=== PATIENT | female | born 1970 | race Caucasian/White ===

== ENCOUNTER 2018-03-12 00:39 | Inpatient (IN) | payer OTHER ==
[2018-03-12] MEDS ORDERED: SODIUM CHLORIDE 0.9% 1,000 ML IV STA (00:44)
--- NOTE | 2018-03-12 00:59 | ED ---
General Adult HPI - General Stated complaint: mental health Time Seen by Provider: 03/12/18 00:44 Source: patient, police, EMS, RN notes reviewed, old records reviewed - History of Present Illness Initial comments: 47-year-old female presents with suicide attempt. Patient states that beginning at approximately 9 PM she took between 50 and 60 extra strength Tylenol, 500 mg. And between 50 and 60 prescription strength Motrin. This was a suicide attempt. She has had nausea and several episodes of vomiting since ingestion. She is presenting with police at approximately 1 AM. She is uncertain of the exact time course but believes the pills were ingested between 9 and 10 PM. She also admits taking her regular blood pressure medication and Xanax. Denies any alcohol consumption. - Related Data Home Medications Medication Instructions Recorded Confirmed ALPRAZolam [Xanax] 2 mg PO TID PRN 04/23/15 06/30/15 HYDROcodone/APAP 10-325MG [[place] 1 tab PO DIRECTED PRN 04/23/15 06/30/15 10-325] Ibuprofen [Motrin] 800 mg PO DIRECTED PRN 04/23/15 06/30/15 Ranitidine HCl [Zantac] 150 mg PO BID 04/23/15 06/30/15 amLODIPine BES/OLMESARTAN MED 1 tab PO DAILY 04/23/15 06/30/15 [Dodie 5-40 mg Tablet] Albuterol Inhaler [Ventolin Hfa 1 - 2 puff INHALATION Q6HR PRN 05/20/15 06/30/15 Inhaler] Albuterol Nebulized [Ventolin 2.5 mg INHALATION DAILY PRN 05/20/15 06/30/15 Nebulized] Previous Rx's Medication Instructions Recorded Docusate [Colace] 100 mg PO BID #30 capsule 06/30/15 Allergies Allergy/AdvReac Type Severity Reaction Status Date / Time amoxicillin Allergy Rash/Hives Verified 05/18/15 13:55 cefaclor [From Ceclor] Allergy Rash/Hives Verified 05/18/15 13:55 clarithromycin [From Biaxin] Allergy Rash/Hives Verified 05/18/15 13:55 meperidine HCl [From Demerol] Allergy Rash/Hives/ Verified 05/18/15 13:55 vomiting sulfamethoxazole Allergy Rash/Hives Verified 05/18/15 13:55 [From Septra] trimethoprim [From ] Allergy Rash/Hives Verified 05/18/15 13:55 Review of Systems ROS Statement: Those systems with pertinent positive or pertinent negative responses have been documented in the HPI. ROS Other: All systems not noted in ROS Statement are negative. Past Medical History Past Medical History: GERD/Reflux, Osteoarthritis (OA) Additional Past Medical History / Comment(s): SCOLIOSIS, DDD, HX OF H PYLORI, VENEGAS'S ESOPHAGUS, HIATAL HERNIA History of Any Multi-Drug Resistant Organisms: None Reported Past Surgical History: Breast Surgery, Hysterectomy, Tubal Ligation Additional Past Surgical History / Comment(s): RT BREAST BX, STILL HAS MARKER Past Anesthesia/Blood Transfusion Reactions: Previous Problems w/ Anesthesia Additional Past Anesthesia/Blood Transfusion Reaction / Comment(s): " TAKES LONGER TO WAKE UP AND HAS WOKE UP DURING SURGERY PREVIOUSLY" Smoking Status: Current every day smoker - Past Family History Mother Family Medical History: No Reported History General Exam General appearance: alert, in no apparent distress, appears intoxicated Head exam: Present: atraumatic, normocephalic Eye exam: Present: normal appearance, PERRL ENT exam: Present: mucous membranes dry Neck exam: Present: normal inspection, tenderness Respiratory exam: Present: normal lung sounds bilaterally. Absent: respiratory distress Cardiovascular Exam: Present: normal rhythm, tachycardia GI/Abdominal exam: Present: soft. Absent: distended, tenderness, guarding Extremities exam: Present: normal inspection, normal capillary refill. Absent: pedal edema Neurological exam: Present: alert, oriented X3, CN II-XII intact. Absent: motor sensory deficit Psychiatric exam: Present: depressed, suicidal ideation Skin exam: Present: warm, dry, intact. Absent: cyanosis, diaphoretic Course Vital Signs 03/12/18 03/12/18 00:56 01:36 Pulse Rate 129 H 124 H Respiratory 18 16 Rate Blood Pressure 152/98 120/83 O2 Sat by Pulse 97 98 Oximetry EKG Findings - EKG Comments: EKG Findings:: EKG sinus tachycardia, rate of 115, NV interval 150, QRS duration 84, QTC 459, no ischemic changes Medical Decision Making - Medical Decision Making 47-year-old female presents with Tylenol and Motrin overdose. Initial dose is calculated somewhat between 25 and 30 g of Tylenol. Although the time course is unknown at initial onset, patient is started on N-acetylcysteine and given charcoal. Laboratory studies are obtained. Patient has mild leukocytosis, stable hemoglobin, INR is normal 0.9. She is acidotic with a CO2 of 17 likely secondary to lactic acidosis of 5.7. AST and ALT are normal. Tylenol level is 297 which is toxic. Alcohol and aspirin levels are nondetectable. Urinalysis pending as patient is unable to give urine sample at this time. She receives 2 L of IV hydration N-acetylcysteine by protocol. Case is discussed with poison control both at the initial presentation and after laboratory studies are obtained. I did ask if this patient require transfer for higher level care given the elevated lactic acid, and poison control states that this does not require transplant center. Patient can be admitted to this facility. Repeat laboratory studies will be obtained including Tylenol level, and AST, ALT, as well as INR. She is admitted to a monitored bed with both GI and psychiatry on consult. Suicide precautions will be maintained. - Lab Data Result diagrams: 03/12/18 00:46 03/12/18 00:46 Lab Results 03/12/18 03/12/18 03/12/18 Range/Units 00:46 00:46 01:19 WBC 12.2 H (3.8-10.6) k/uL RBC 4.46 (3.80-5.40) m/uL Hgb 14.6 (11.4-16.0) gm/dL Hct 43.7 (34.0-46.0) % MCV 98.0 (80.0-100.0) fL MCH 32.8 (25.0-35.0) pg MCHC 33.4 (31.0-37.0) g/dL RDW 13.7 (11.5-15.5) % Plt Count 412 (150-450) k/uL Neutrophils % (Manual) 42 % Lymphocytes % (Manual) 49 % Monocytes % (Manual) 5 % Eosinophils % (Manual) 4 % Neutrophils # (Manual) 5.12 (1.3-7.7) k/uL Lymphocytes # (Manual) 5.98 H (1.0-4.8) k/uL Monocytes # (Manual) 0.61 (0-1.0) k/uL Eosinophils # (Manual) 0.49 (0-0.7) k/uL Nucleated RBCs 0 (0-0) /100 WBC Manual Slide Review Performed RBC Morphology Normal PT (9.0-12.0) sec INR (<1.2) Sodium 143 (137-145) mmol/L Potassium 4.9 (3.5-5.1) mmol/L Chloride 111 H (98-107) mmol/L Carbon Dioxide 17 L (22-30) mmol/L Anion Gap 15 mmol/L BUN 9 (7-17) mg/dL Creatinine 0.64 (0.52-1.04) mg/dL Est GFR (CKD-EPI)AfAm >90 (>60 ml/min/1.73 sqM) Est GFR (CKD-EPI)NonAf >90 (>60 ml/min/1.73 sqM) Glucose 118 H (74-99) mg/dL Plasma Lactic Acid George 5.7 H* (0.7-2.0) mmol/L Calcium 10.7 H (8.4-10.2) mg/dL Total Bilirubin 0.4 (0.2-1.3) mg/dL AST 26 (14-36) U/L ALT 27 (9-52) U/L Alkaline Phosphatase 104 (38-126) U/L Total Protein 7.7 (6.3-8.2) g/dL Albumin 4.4 (3.5-5.0) g/dL Salicylates <1.0 mg/dL Acetaminophen 297.0 H* ug/mL Serum Alcohol <10 mg/dL 03/12/18 Range/Units 01:19 WBC (3.8-10.6) k/uL RBC (3.80-5.40) m/uL Hgb (11.4-16.0) gm/dL Hct (34.0-46.0) % MCV (80.0-100.0) fL MCH (25.0-35.0) pg MCHC (31.0-37.0) g/dL RDW (11.5-15.5) % Plt Count (150-450) k/uL Neutrophils % (Manual) % Lymphocytes % (Manual) % Monocytes % (Manual) % Eosinophils % (Manual) % Neutrophils # (Manual) (1.3-7.7) k/uL Lymphocytes # (Manual) (1.0-4.8) k/uL Monocytes # (Manual) (0-1.0) k/uL Eosinophils # (Manual) (0-0.7) k/uL Nucleated RBCs (0-0) /100 WBC Manual Slide Review RBC Morphology PT 10.2 (9.0-12.0) sec INR 0.9 (<1.2) Sodium (137-145) mmol/L Potassium (3.5-5.1) mmol/L Chloride (98-107) mmol/L Carbon Dioxide (22-30) mmol/L Anion Gap mmol/L BUN (7-17) mg/dL Creatinine (0.52-1.04) mg/dL Est GFR (CKD-EPI)AfAm (>60 ml/min/1.73 sqM) Est GFR (CKD-EPI)NonAf (>60 ml/min/1.73 sqM) Glucose (74-99) mg/dL Plasma Lactic Acid George (0.7-2.0) mmol/L Calcium (8.4-10.2) mg/dL Total Bilirubin (0.2-1.3) mg/dL AST (14-36) U/L ALT (9-52) U/L Alkaline Phosphatase (38-126) U/L Total Protein (6.3-8.2) g/dL Albumin (3.5-5.0) g/dL Salicylates mg/dL Acetaminophen ug/mL Serum Alcohol mg/dL Critical Care Time Critical Care Time: Yes Total Critical Care Time: 45 Disposition Clinical Impression: Depression, Attempted suicide, Acetaminophen overdose Disposition: ADMITTED IP TO THIS [facility] Condition: Serious Is patient prescribed a controlled substance at d/c from ED?: No Referrals: None,Stated [Primary Care Provider] - 1-2 days Decision to Admit Reason: Admit from EC Decision Date: 03/12/18 Decision Time: 02:28
[2018-03-12] MEDS ORDERED: ACTIVATED CHARCOAL-SORBITOL 50 GM/240 ML BOTTLE PO STA (01:00)
[2018-03-12] MEDS ORDERED: ACETYLCYSTEINE IV 12,000 MG in DEXTROSE 5% IN WATER 200 ML IV ONE ×2 (01:00)
[2018-03-12 01:17] LABS: AST 26 U/L (14-36); Albumin 4.4 g/dL (3.5-5.0); Anion Gap 15 mmol/L; Blood Urea Nitrogen 9 mg/dL (7-17); Calcium 10.7 mg/dL (8.4-10.2); Carbon Dioxide 17 mmol/L (22-30); Chloride 111 mmol/L (98-107); Glucose 118 mg/dL (74-99); Potassium 4.9 mmol/L (3.5-5.1); Sodium 143 mmol/L (137-145); Total Bilirubin 0.4 mg/dL (0.2-1.3); Total Protein 7.7 g/dL (6.3-8.2)
[2018-03-12 01:18] LABS: ALT 27 U/L (9-52); Alcohol <10 mg/dL; Alkaline Phosphatase 104 U/L (38-126); Salicylate <1.0 mg/dL
[2018-03-12 01:36] LABS: INR 0.9 (<1.2); Prothrombin Time 10.2 sec (9.0-12.0)
[2018-03-12 01:39] LABS: HCT 43.7 % (34.0-46.0); HGB 14.6 gm/dL (11.4-16.0); MCH 32.8 pg (25.0-35.0); MCHC 33.4 g/dL (31.0-37.0); Mean Platelet Volume 8.1; Platelet Count 412 k/uL (150-450); RBC 4.46 m/uL (3.80-5.40); RDW 13.7 % (11.5-15.5); WBC 12.2 k/uL (3.8-10.6)
[2018-03-12 01:47] LABS: Eosinophils # (M) 0.49 k/uL (0-0.7); Lymphocytes # (M) 5.98 k/uL (1.0-4.8); Monocytes # (M) 0.61 k/uL (0-1.0); Neutrophils # (M) 5.12 k/uL (1.3-7.7); Neutrophils % (M) 42 %; Nucleated Red Blood Cells 0 /100 WBC (0-0); Total Cells Counted 100
[2018-03-12] MEDS ORDERED: SODIUM CHLORIDE 0.9% 1,000 ML IV ONE (02:03)
[2018-03-12] MEDS ORDERED: ONDANSETRON 4 MG/2 ML VIAL IVP PRN (02:16)
[2018-03-12] MEDS ORDERED: NALOXONE 0.4 MG/ML 1 ML VIAL IV PRN (02:16)
[2018-03-12] MEDS ORDERED: ACETYLCYSTEINE IV 4,000 MG in DEXTROSE 5% IN WATER 500 ML IV ONE ×2 (02:30)
[2018-03-12 04:30] LABS: Appearance,Urine Clear (Clear); Bilirubin,Urine Negative (Negative); Blood,Urine Negative (Negative); Color,Urine Colorless; Glucose,Urine (UA) 3+ (Negative); Leukocyte Esterase,Urine Negative (Negative); Nitrite,Urine Negative (Negative); PH, Urine 5.5 (5.0-8.0); Protein,Urine Negative (Negative); Specific Gravity,Urine 1.016 (1.001-1.035); Urobilinogen,Urine <2.0 mg/dL (<2.0)
[2018-03-12 04:41] LABS: Amphetamine Screen,Urine Not Detected (NotDetected); Barbiturate Screen,Urine Not Detected (NotDetected); Benzodiazepines Screen,Urine Detected (NotDetected); Cocaine Screen,Urine Not Detected (NotDetected); Methadone Screen, Urine Not Detected (NotDetected); Opiate Screen,Urine Not Detected (NotDetected); Oxycodone Screen, Urine Not Detected (NotDetected); Phencyclidine Screen,Urine Not Detected (NotDetected); Tricyclic Antidepressant,Urine Not Detected (NotDetected); Urn Cannabinoid Scrn Not Detected (NotDetected)
[2018-03-12 04:49] LABS: Ketones,Urine 4+ (Negative)
[2018-03-12] MEDS: SODIUM CHLORIDE 0.9% 1,000 ML IV SCH ×3 (05:14→20:41)
[2018-03-12] MEDS ORDERED: DEXTROSE 5% IV ONE ×2 (06:30)
[2018-03-12] MEDS ORDERED: ACETYLCYSTEINE IV ONE ×2 (06:30)
[2018-03-12] MEDS ORDERED: WATER IV ONE ×2 (06:30)
[2018-03-12] MEDS ORDERED: PNEUMOCOCCAL VACC-PNEUMOVAX 23 25 MCG/0.5 ML VIAL IM ONE (08:59)
--- NOTE | 2018-03-12 13:40 | P.HPIM ---
History of Present Illness This is a pleasant 47 years old female with past medical history of GERD, hypertension, ARTHRITIS, chronic back pain and scoliosis, status post hysterectomy, Whitley's esophagus, hemorrhoids, depression and anxiety. Who presents with suicidal attempts and injections of many Tylenol, Motrin, antihypertensive and Xanax pills however when I saw the patient she told me she only took Tylenol and Motrin trying to kill herself she took the other medication for blood pressure and Xanax as prescribed for her. Patient was complaining from blood with nausea vomiting and epigastric pain which was nonspecific in character nonradiating about 4/10 in severity to . abdominal exam shows only mild tenderness with soft abdomen. Patient got N acetylcysteine in the emergency room and she is on IV fluids. Protonix is added Liver enzymes on admission was within normal limits while acetaminophen pain was elevated more than 200, slowly trending down Review of Systems CONSTITUTIONAL: No fever, no malaise, no fatigue. HEENT: No recent visual problems or hearing problems. Denied any sore throat. CARDIOVASCULAR: No orthopnea, PND, no palpitations, no syncope. PULMONARY: No shortness of breath, no cough, no hemoptysis. GASTROINTESTINAL: No diarrhea, no nausea, no vomiting, no abdominal pain. Normoactive bowel sounds. NEUROLOGICAL: No headaches, no weakness, no numbness. HEMATOLOGICAL: Denies any bleeding or petechiae. GENITOURINARY: Denies any burning micturition, frequency, or urgency. MUSCULOSKELETAL/RHEUMATOLOGICAL: Denies any joint pain, swelling, or any muscle pain. ENDOCRINE: Denies any polyuria or polydipsia. Past Medical History Past Medical History: GERD/Reflux, Hypertension, Osteoarthritis (OA) Additional Past Medical History / Comment(s): Chronic vack pain, scoliosis, bulging discs, several bronchitis's, past H pylori, Whitley's esophagus, hialtal hernia, thrombosed/ruptured hemorrhoids History of Any Multi-Drug Resistant Organisms: None Reported Past Surgical History: Breast Surgery, Hysterectomy, Tubal Ligation Additional Past Surgical History / Comment(s): R breast biopsy (has marker), drainage of thrombosed hemorrhoid, EGD, esophageal manometry/motility study Past Anesthesia/Blood Transfusion Reactions: Previous Problems w/ Anesthesia Additional Past Anesthesia/Blood Transfusion Reaction / Comment(s): Pt states she arrested during hemorrhoid surgery. Pt has clausterphobia. Smoking Status: Current every day smoker - Past Family History Mother History Unknown: Yes Family Medical History: No Reported History Additional Family Medical History / Comment(s): Mother is alive. Pt does not know her medical hx Father Family Medical History: No Reported History Additional Family Medical History / Comment(s): Father is healthy. Medications and Allergies Home Medications Medication Instructions Recorded Confirmed Type ALPRAZolam [Xanax] 2 mg PO TID PRN 04/23/15 03/12/18 History Ibuprofen [Motrin] 800 mg PO Q8H PRN 04/23/15 03/12/18 History Ranitidine HCl [Zantac] 150 mg PO BID 04/23/15 03/12/18 History Albuterol Sulfate [Proair Hfa] 2 puff INHALATION RT-QID PRN 03/12/18 03/12/18 History Beclomethasone Dip 80 Mcg/Puff 1 puff INHALATION RT-BID 03/12/18 03/12/18 History [Qvar 80 mcg] Benazepril HCl 20 mg PO DAILY 03/12/18 03/12/18 History Dextroamphetamine/Amphetamine 20 mg PO BID 03/12/18 03/12/18 History [Adderall] Latanoprost Ophth [Xalatan 0.005%] 1 drop BOTH EYES HS 03/12/18 03/12/18 History Loratadine [Claritin] 10 mg PO DAILY 03/12/18 03/12/18 History Omeprazole 20 mg PO DAILY PRN 03/12/18 03/12/18 History amLODIPine [Norvasc] 10 mg PO DAILY 03/12/18 03/12/18 History Allergies Allergy/AdvReac Type Severity Reaction Status Date / Time amoxicillin Allergy Rash/Hives Verified 03/12/18 10:40 cefaclor [From Ceclor] Allergy Rash/Hives Verified 03/12/18 10:40 clarithromycin [From Biaxin] Allergy Rash/Hives Verified 03/12/18 10:40 meperidine HCl [From Demerol] Allergy Rash/Hives/ Verified 03/12/18 10:40 vomiting sulfamethoxazole Allergy Rash/Hives Verified 03/12/18 10:40 [From Septra] trimethoprim [From Septra] Allergy Rash/Hives Verified 03/12/18 10:40 Physical Exam Vitals: Vital Signs Pulse Resp BP Pulse Ox 03/12/18 06:22 89 16 115/81 100 03/12/18 05:22 89 16 03/12/18 05:13 105 H 03/12/18 03:25 110 H 16 122/79 99 03/12/18 01:36 124 H 16 120/83 98 03/12/18 00:56 129 H 18 152/98 97 Intake and Output 03/11/18 03/12/18 03/12/18 22:59 06:59 14:59 Other: Weight 80 kg GENERAL: The patient is alert and oriented x3, not in any acute distress. Well developed, well nourished. HEENT: Pupils are round and equally reacting to light. EOMI. No scleral icterus. No conjunctival pallor. Normocephalic, atraumatic. No pharyngeal erythema. No thyromegaly. CARDIOVASCULAR: S1 and S2 present. No murmurs, rubs, or gallops. PULMONARY: Chest is clear to auscultation, no wheezing or crackles. -ABDOMEN: Soft, mild epigastric tenderness, nondistended, normoactive bowel sounds. No palpable organomegaly. MUSCULOSKELETAL: No joint swelling or deformity. EXTREMITIES: No cyanosis, clubbing, or pedal edema. NEUROLOGICAL: Gross neurological examination did not reveal any focal deficits. SKIN: No rashes. Results CBC & Chem 7: 03/12/18 00:46 03/12/18 00:46 Labs: Abnormal Lab Results - Last 24 Hours (Table) 03/12/18 03/12/18 03/12/18 Range/Units 00:46 00:46 01:19 WBC 12.2 H (3.8-10.6) k/uL Lymphocytes # (Manual) 5.98 H (1.0-4.8) k/uL Chloride 111 H (98-107) mmol/L Carbon Dioxide 17 L (22-30) mmol/L Glucose 118 H (74-99) mg/dL Plasma Lactic Acid George 5.7 H* (0.7-2.0) mmol/L Calcium 10.7 H (8.4-10.2) mg/dL Urine Glucose (UA) (Negative) Urine Ketones (Negative) Acetaminophen 297.0 H* ug/mL U Benzodiazepines Scrn (NotDetected) 03/12/18 03/12/18 03/12/18 Range/Units 04:14 04:18 04:18 WBC (3.8-10.6) k/uL Lymphocytes # (Manual) (1.0-4.8) k/uL Chloride (98-107) mmol/L Carbon Dioxide (22-30) mmol/L Glucose (74-99) mg/dL Plasma Lactic Acid George 3.1 H* (0.7-2.0) mmol/L Calcium (8.4-10.2) mg/dL Urine Glucose (UA) 3+ H (Negative) Urine Ketones 4+ H (Negative) Acetaminophen 208.9 H* ug/mL U Benzodiazepines Scrn Detected H (NotDetected) Thrombosis Risk Factor Assmnt - Choose All That Apply Any of the Below Risk Factors Present?: Yes Each Factor Represents 1 point: Age 41-60 years, Obesity (BMI >25) Other Risk Factors: No Other congenital or acquired thrombophilia - If yes, enter type in comment: No Thrombosis Risk Factor Assessment Total Risk Factor Score: 2 Thrombosis Risk Factor Assessment Level: Low Risk Assessment and Plan Assessment: Over indigestion of pills including Tylenol, Motrin Tylenol toxicity Nausea vomiting Suicidal ideation History of GERD, Essential hypertension Chronic back pain and scoliosis History of hemorrhoids History of hysterectomy Plan: This is a pleasant 47 years old female who presents with suicidal attempt and over injections of pills including Tylenol. Continue with fluids and supportive measure. Call GI consult. Call psychiatry consult. Replace sitter 1-1 observation. Labs and medication were reviewed.. Continue same treatment. Continue with symptomatic treatment. Resume home medication. Monitor lytes and vitals. DVT and GI prophylaxis. Further recommendations of the clinical course of the patient DVT prophylaxis: Subcutaneous heparin GI Prophylaxis: Protonix Prognosis is guarded Discussed with staff and bedside nurse
[2018-03-12 14:01] LABS: Albumin 3.6 g/dL (3.5-5.0); Bilirubin, Delta 0.3 mg/dL (0.0-0.2); Total Bilirubin 0.3 mg/dL (0.2-1.3); Total Protein 6.2 g/dL (6.3-8.2)
[2018-03-12] MEDS: PANTOPRAZOLE 40 MG/10 ML VIAL IVP SCH ×2 (14:35→21:53)
[2018-03-12] MEDS: FAMOTIDINE 20 MG TAB PO SCH (20:40)
[2018-03-12] MEDS: ALPRAZolam 1 MG TAB PO PRN (20:41)
[2018-03-12] MEDS: HEPARIN SODIUM,PORCINE 5,000 UNIT/ML 1 ML VIAL SQ SCH (21:53)
--- NOTE | 2018-03-12 23:10 | P.CONS ---
History of Present Illness - Reason for Consult Consult date: 03/12/18 Tylenol overdose Requesting physician: Eduardo E Sheet - Chief Complaint Tylenol overdose - History of Present Illness 47-year-old female with a history of reflux disease, Whitley's esophagus, hypertension, arthritis, chronic back pain, depression/anxiety and scoliosis who was brought to the hospital by EMS for evaluation after overdose with Motrin and Tylenol. The history has been taken from combination of conversation with the patient as well as review of the EMR and discussion with the patient's family who is bedside. The patient was brought to the hospital after ingesting approximately 50-60 pills of extra strength Tylenol and 50-60 prescription Motrin pills. The patient ingested the medications between 9 and 10 PM and was evaluated in the hospital around 1 AM. At that time a poison control was contacted as the patient had an elevated blood level of acetaminophen. The patient's liver enzymes and INR were found to be normal with a total bilirubin 0.4, alkaline phosphatase 104, AST 26 and ALT 27, and an INR of 0.9. As mentioned Tylenol level was found to be 297 and elevated. Per recommendations from poison control the patient did not need to be referred to a tertiary referral center and was given activated charcoal and started on treatment with N-acetylcysteine. The patient reports multiple episodes of vomiting after the activated charcoal. Currently she is awake and oriented and per the family much more interactive then the previous night. She denies any abdominal pain or other complaints. She reports that she has had endoscopic evaluation for her Whitley's disease earlier in the year. Review of Systems REVIEW OF SYSTEMS: CARDIO: Denies any chest pain or palpitations. PULMONARY: Denies any shortness of breath or wheezing. GENITOURINARY: No dysuria or hematuria. MUSCULOSKELETAL: No weakness reported. SKIN: Denies any new rashes or lesions, jaundice or pallor. PSYCHIATRIC: Presented after a suicide attempt with a known history of depression and anxiety. NEUROLOGY: Denies headache, denies any new focal deficits. EARS: No tinnitus, discharge or new hearing loss. NOSE: No discharge or congestion. EYES: No pain in eyes or change in vision. CONSTITUTIONAL: No recent weight loss. No fever, chills, night sweats. Past Medical History Past Medical History: GERD/Reflux, Hypertension, Osteoarthritis (OA) Additional Past Medical History / Comment(s): Chronic vack pain, scoliosis, bulging discs, several bronchitis's, past H pylori, Whitley's esophagus, hialtal hernia, thrombosed/ruptured hemorrhoids History of Any Multi-Drug Resistant Organisms: None Reported Past Surgical History: Breast Surgery, Hysterectomy, Tubal Ligation Additional Past Surgical History / Comment(s): R breast biopsy (has marker), drainage of thrombosed hemorrhoid, EGD, esophageal manometry/motility study Past Anesthesia/Blood Transfusion Reactions: Previous Problems w/ Anesthesia Additional Past Anesthesia/Blood Transfusion Reaction / Comm: Pt states she arrested during hemorrhoid surgery. Pt has clausterphobia. Smoking Status: Current every day smoker - Past Family History Mother History Unknown: Yes Family Medical History: No Reported History Additional Family Medical History / Comment(s): Mother is alive. Pt does not know her medical hx Father Family Medical History: No Reported History Additional Family Medical History / Comment(s): Father is healthy. Medications and Allergies Home Medications Medication Instructions Recorded Confirmed Type ALPRAZolam [Xanax] 2 mg PO TID PRN 04/23/15 03/12/18 History Ibuprofen [Motrin] 800 mg PO Q8H PRN 04/23/15 03/12/18 History Ranitidine HCl [Zantac] 150 mg PO BID 04/23/15 03/12/18 History Albuterol Sulfate [Proair Hfa] 2 puff INHALATION RT-QID PRN 03/12/18 03/12/18 History Beclomethasone Dip 80 Mcg/Puff 1 puff INHALATION RT-BID 03/12/18 03/12/18 History [Qvar 80 mcg] Benazepril HCl 20 mg PO DAILY 03/12/18 03/12/18 History Dextroamphetamine/Amphetamine 20 mg PO BID 03/12/18 03/12/18 History [Adderall] Latanoprost Ophth [Xalatan 0.005%] 1 drop BOTH EYES HS 03/12/18 03/12/18 History Loratadine [Claritin] 10 mg PO DAILY 03/12/18 03/12/18 History Omeprazole 20 mg PO DAILY PRN 03/12/18 03/12/18 History amLODIPine [Norvasc] 10 mg PO DAILY 03/12/18 03/12/18 History Allergies Allergy/AdvReac Type Severity Reaction Status Date / Time amoxicillin Allergy Rash/Hives Verified 03/12/18 10:40 cefaclor [From Ceclor] Allergy Rash/Hives Verified 03/12/18 10:40 clarithromycin [From Biaxin] Allergy Rash/Hives Verified 03/12/18 10:40 meperidine HCl [From Demerol] Allergy Rash/Hives/ Verified 03/12/18 10:40 vomiting sulfamethoxazole Allergy Rash/Hives Verified 03/12/18 10:40 [From Septra] trimethoprim [From Septra] Allergy Rash/Hives Verified 03/12/18 10:40 Physical Exam Vitals: Vital Signs Temp Pulse Pulse Resp BP BP Pulse Ox 03/12/18 21:20 98.1 F 85 18 135/79 98 03/12/18 20:45 88 18 134/87 99 03/12/18 06:22 89 16 115/81 100 03/12/18 05:22 89 16 03/12/18 05:13 105 H 03/12/18 03:25 110 H 16 122/79 99 03/12/18 01:36 124 H 16 120/83 98 03/12/18 00:56 129 H 18 152/98 97 Intake and Output 03/12/18 03/12/18 03/12/18 06:59 14:59 22:59 Other: Weight 80 kg 73.8 kg On physical examination, patient appears comfortable in no apparent distress. HEAD: Normocephalic, atraumatic. EYES: No scleral icterus. No conjunctival injection. MOUTH: No lesions, tongue midline. NECK: Trachea midline, no gross abnormalities. CHEST: Clear to auscultation with no wheezing or rhonchi appreciated. HEART: Regular rate and rhythm. ABDOMEN: Soft, obese. Bowel sounds are positive. No organomegaly. No guarding or rigidity. EXTREMITIES: No pedal edema. SKIN: No rashes, no jaundice. NEUROLOGIC: Alert and oriented x3. No focal deficits. Results CBC & Chem 7: 03/12/18 00:46 03/12/18 00:46 Labs: Abnormal Lab Results - Last 24 Hours (Table) 03/12/18 03/12/18 03/12/18 Range/Units 00:46 00:46 01:19 WBC 12.2 H (3.8-10.6) k/uL Lymphocytes # (Manual) 5.98 H (1.0-4.8) k/uL Chloride 111 H (98-107) mmol/L Carbon Dioxide 17 L (22-30) mmol/L Glucose 118 H (74-99) mg/dL Plasma Lactic Acid George 5.7 H* (0.7-2.0) mmol/L Calcium 10.7 H (8.4-10.2) mg/dL Delta Bilirubin (0.0-0.2) mg/dL Total Protein (6.3-8.2) g/dL Urine Glucose (UA) (Negative) Urine Ketones (Negative) Acetaminophen 297.0 H* ug/mL U Benzodiazepines Scrn (NotDetected) 03/12/18 03/12/18 03/12/18 Range/Units 04:14 04:18 04:18 WBC (3.8-10.6) k/uL Lymphocytes # (Manual) (1.0-4.8) k/uL Chloride (98-107) mmol/L Carbon Dioxide (22-30) mmol/L Glucose (74-99) mg/dL Plasma Lactic Acid George 3.1 H* (0.7-2.0) mmol/L Calcium (8.4-10.2) mg/dL Delta Bilirubin (0.0-0.2) mg/dL Total Protein (6.3-8.2) g/dL Urine Glucose (UA) 3+ H (Negative) Urine Ketones 4+ H (Negative) Acetaminophen 208.9 H* ug/mL U Benzodiazepines Scrn Detected H (NotDetected) 03/12/18 Range/Units 13:20 WBC (3.8-10.6) k/uL Lymphocytes # (Manual) (1.0-4.8) k/uL Chloride (98-107) mmol/L Carbon Dioxide (22-30) mmol/L Glucose (74-99) mg/dL Plasma Lactic Acid George (0.7-2.0) mmol/L Calcium (8.4-10.2) mg/dL Delta Bilirubin 0.3 H (0.0-0.2) mg/dL Total Protein 6.2 L (6.3-8.2) g/dL Urine Glucose (UA) (Negative) Urine Ketones (Negative) Acetaminophen ug/mL U Benzodiazepines Scrn (NotDetected) Assessment and Plan (1) Acetaminophen overdose Narrative/Plan: Patient presenting after ingesting 50-60 extra strength Tylenol, brought to the hospital by EMS she received treatment within 6 hours approximately of the episode with activated charcoal and an acetylcysteine. Poison control was contacted by the emergency room physician. Current Visit: Yes Status: Acute Code(s): T39.1X1A - POISONING BY 4- AMINOPHENOL DERIVATIVES, ACCIDENTAL, INIT SNOMED Code(s): 713836993 (2) Attempted suicide Current Visit: Yes Status: Acute Code(s): T14.91XA - SUICIDE ATTEMPT, INITIAL ENCOUNTER SNOMED Code(s): 88781101 (3) Depression Current Visit: Yes Status: Acute Code(s): F32.9 - MAJOR DEPRESSIVE DISORDER , SINGLE EPISODE, UNSPECIFIED SNOMED Code(s): 30485585 Plan: Supportive care Okay for diet Serial monitoring of liver enzymes and INR Continue to monitor mental status Psychiatry service has been consult to Activated charcoal given in emergency department Continue treatment with N-acetylcysteine per recommendations by poison control Patient being followed in the outpatient setting for treatment and monitoring of Whitley's Thank you for allowing us to participate in the care of this patient we will continue to follow
[2018-03-13] MEDS: LATANOPROST 0.005% OPHTH DROPS 2.5 ML BTL BOTH EYES SCH ×2 (00:35→20:34)
[2018-03-13 02:04] LABS: Albumin 3.8 g/dL (3.5-5.0); Bilirubin, Delta 0.2 mg/dL (0.0-0.2); Total Bilirubin 0.2 mg/dL (0.2-1.3); Total Protein 6.5 g/dL (6.3-8.2)
[2018-03-13] MEDS: SODIUM CHLORIDE 0.9% 1,000 ML IV SCH ×2 (03:00→12:24)
[2018-03-13] MEDS: ALPRAZolam 1 MG TAB PO PRN ×2 (07:06→18:06)
[2018-03-13] MEDS: FAMOTIDINE 20 MG TAB PO SCH (07:06)
[2018-03-13 08:09] LABS: Basophils # (A) 0.1 k/uL (0-0.2); Basophils % (A) 1 %; Eosinophils # (A) 0.4 k/uL (0-0.7); Eosinophils % (A) 5 %; HCT 37.5 % (34.0-46.0); Lymphocytes # (A) 3.8 k/uL (1.0-4.8); Lymphocytes % (A) 49 %; MCH 31.7 pg (25.0-35.0); MCV 99.2 fL (80.0-100.0); Mean Platelet Volume 7.9; Monocytes # (A) 0.3 k/uL (0-1.0); Monocytes % (A) 3 %; Neutrophils # (A) 3.1 k/uL (1.3-7.7); Neutrophils % (A) 39 %; Platelet Count 389 k/uL (150-450); RBC 3.78 m/uL (3.80-5.40); RDW 13.9 % (11.5-15.5); WBC 7.9 k/uL (3.8-10.6)
[2018-03-13 08:14] LABS: Prothrombin Time 10.4 sec (9.0-12.0)
[2018-03-13 08:27] LABS: ALT 26 U/L (9-52); AST 14 U/L (14-36); Albumin 3.3 g/dL (3.5-5.0); Alkaline Phosphatase 73 U/L (38-126); Anion Gap 6 mmol/L; Blood Urea Nitrogen 8 mg/dL (7-17); Calcium 9.9 mg/dL (8.4-10.2); Carbon Dioxide 20 mmol/L (22-30); Chloride 115 mmol/L (98-107); Glucose 92 mg/dL (74-99); Magnesium 1.7 mg/dL (1.6-2.3); Phosphorus 4.2 mg/dL (2.5-4.5); Potassium 4.7 mmol/L (3.5-5.1); Sodium 141 mmol/L (137-145); Total Bilirubin 0.3 mg/dL (0.2-1.3); Total Protein 5.9 g/dL (6.3-8.2)
[2018-03-13] MEDS: PANTOPRAZOLE 40 MG/10 ML VIAL IVP SCH ×2 (09:00→20:34)
[2018-03-13] MEDS: amLODIPine 10 MG TAB PO SCH (09:00)
[2018-03-13] MEDS: HEPARIN SODIUM,PORCINE 5,000 UNIT/ML 1 ML VIAL SQ SCH ×2 (09:00→20:25)
--- NOTE | 2018-03-13 11:08 | P.PN ---
Subjective This is a pleasant 47 years old female with past medical history of GERD, hypertension, ARTHRITIS, chronic back pain and scoliosis, status post hysterectomy, Whitley's esophagus, hemorrhoids, depression and anxiety. Who presents with suicidal attempts and injections of many Tylenol, Motrin, antihypertensive and Xanax pills however when I saw the patient she told me she only took Tylenol and Motrin trying to kill herself she took the other medication for blood pressure and Xanax as prescribed for her. Patient was complaining from blood with nausea vomiting and epigastric pain which was nonspecific in character nonradiating about 4/10 in severity to . abdominal exam shows only mild tenderness with soft abdomen. Patient got N acetylcysteine in the emergency room and she is on IV fluids. Protonix is added Liver enzymes on admission was within normal limits while acetaminophen pain was elevated more than 200, slowly trending down 03/13/2018 Patient is awake and alert today she is oriented exit 3. Consider still at bedside. Patient does not look in distress. Denies chest pain or abdominal pain. No nausea vomiting. No change in bowel movement. No jaundice is noticed. Patient tolerating diet well. Hemodynamically stable. Liver enzymes and bilirubin within normal range. GI input is appreciated. Objective - Vital Signs Vital signs: Vital Signs Temp 97.7 F 03/13/18 03:14 Pulse 80 03/13/18 08:00 Resp 18 03/13/18 08:00 BP 141/93 03/13/18 08:00 Pulse Ox 100 03/13/18 08:00 Intake & Output 03/12/18 03/13/18 03/13/18 18:59 06:59 18:59 Intake Total 2750 700 Balance 2750 700 Weight 73.8 kg Intake: Intake, IV Titration 2750 Amount Acetylcysteine IV 8,000 1000 mg In Dextrose 5% in Water 1,000 ml @ 62.5 mls /hr IV ONCE ONE Rx#: [id number] Sodium Chloride 0.9% 1, 750 000 ml @ 125 mls/hr IV . Q8H ROCCO Rx#:[id number] Sodium Chloride 0.9% 1, 1000 000 ml @ 999 mls/hr IV . Q1H1M ONE Rx#:[id number] Oral 700 Other: # Voids 1 - Exam GENERAL: The patient is alert and oriented x3, not in any acute distress. Well developed, well nourished. HEENT: Pupils are round and equally reacting to light. EOMI. No scleral icterus. No conjunctival pallor. Normocephalic, atraumatic. No pharyngeal erythema. No thyromegaly. CARDIOVASCULAR: S1 and S2 present. No murmurs, rubs, or gallops. PULMONARY: Chest is clear to auscultation, no wheezing or crackles. -ABDOMEN: Soft, mild epigastric tenderness, nondistended, normoactive bowel sounds. No palpable organomegaly. MUSCULOSKELETAL: No joint swelling or deformity. EXTREMITIES: No cyanosis, clubbing, or pedal edema. NEUROLOGICAL: Gross neurological examination did not reveal any focal deficits. SKIN: No rashes. - Labs CBC & Chem 7: 03/13/18 07:00 03/13/18 07:00 Labs: Abnormal Lab Results - Last 24 Hours (Table) 03/12/18 03/13/18 03/13/18 Range/Units 13:20 07:00 07:00 RBC 3.78 L (3.80-5.40) m/uL Chloride 115 H (98-107) mmol/L Carbon Dioxide 20 L (22-30) mmol/L Delta Bilirubin 0.3 H (0.0-0.2) mg/dL Total Protein 6.2 L 5.9 L (6.3-8.2) g/dL Albumin 3.3 L (3.5-5.0) g/dL Assessment and Plan Assessment: Over indigestion of pills including Tylenol, Motrin Tylenol toxicity Nausea vomiting Suicidal ideation History of GERD, Essential hypertension Chronic back pain and scoliosis History of hemorrhoids History of hysterectomy Plan: This is a pleasant 47 years old female who presents with suicidal attempt and over injections of pills including Tylenol. Continue with fluids and supportive measure. Call GI consult. Call psychiatry consult. Replace sitter 1-1 observation. Labs and medication were reviewed.. Continue same treatment. Continue with symptomatic treatment. Resume home medication. Monitor lytes and vitals. DVT and GI prophylaxis. Further recommendations of the clinical course of the patient DVT prophylaxis: Subcutaneous heparin GI Prophylaxis: Protonix Prognosis is guarded Discussed with staff and bedside nurse
[2018-03-13] MEDS: NICOTINE 21MG/24HR PATCH TRANSDERM SCH (12:36)
--- NOTE | 2018-03-13 15:14 | P.CN ---
Psychiatric Consult - . Consult date: 03/13/18 Consult:: 03/13/18 09:35 overdose and suicidal Assessment and Plan Assessment: HPI: This is a 47-year-old female with a history of reflux disease, Whitley's esophagus, hypertension, arthritis, chronic back pain, depression/anxiety and scoliosis who was brought to the hospital by EMS for evaluation after overdose with Motrin and Tylenol. The history has been taken from combination of conversation with the patient as well as review of the EMR and discussion with the patient's family who is bedside. The patient was brought to the hospital after ingesting approximately 50-60 pills of extra strength Tylenol and 50-60 prescription Motrin pills. The patient ingested the medications between 9 and 10 PM and was evaluated in the hospital around 1 AM. At that time a poison control was contacted as the patient had an elevated blood level of acetaminophen. The patient's liver enzymes and INR were found to be normal with a total bilirubin 0.4, alkaline phosphatase 104, AST 26 and ALT 27, and an INR of 0.9. As mentioned Tylenol level was found to be 297 and elevated. Per recommendations from poison control the patient did not need to be referred to a tertiary referral center and was given activated charcoal and started on treatment with N-acetylcysteine. The patient reports multiple episodes of vomiting after the activated charcoal. Currently she is awake and oriented and per the family much more interactive then the previous night. She denies any abdominal pain or other complaints. She reports that she has had endoscopic evaluation for her Whitley's disease earlier in the year. Past Medical History Past Medical History: GERD/Reflux, Hypertension, Osteoarthritis (OA) Additional Past Medical History / Comment(s): Chronic vack pain, scoliosis, bulging discs, several bronchitis's, past H pylori, Whitley's esophagus, hialtal hernia, thrombosed/ruptured hemorrhoids History of Any Multi-Drug Resistant Organisms: None Reported Past Surgical History: Breast Surgery, Hysterectomy, Tubal Ligation Additional Past Surgical History / Comment(s): R breast biopsy (has marker), drainage of thrombosed hemorrhoid, EGD, esophageal manometry/motility study Past Anesthesia/Blood Transfusion Reactions: Previous Problems w/ Anesthesia Additional Past Anesthesia/Blood Transfusion Reaction / Comm: Pt states she arrested during hemorrhoid surgery. Pt has clausterphobia. Smoking Status: Current every day smoker - Past Family History Mother History Unknown: Yes Family Medical History: No Reported History Additional Family Medical History / Comment(s): Mother is alive. Pt does not know her medical hx Father Family Medical History: No Reported History Additional Family Medical History / Comment(s): Father is healthy. Medications and Allergies Home Medications Medication Instructions Recorded Confirmed Type ALPRAZolam [Xanax] 2 mg PO TID PRN 04/23/15 03/12/18 History Ibuprofen [Motrin] 800 mg PO Q8H PRN 04/23/15 03/12/18 History Ranitidine HCl [Zantac] 150 mg PO BID 04/23/15 03/12/18 History Albuterol Sulfate [Proair Hfa] 2 puff INHALATION RT-QID PRN 03/12/18 03/12/18 History Beclomethasone Dip 80 Mcg/Puff 1 puff INHALATION RT-BID 03/12/18 03/12/18 History [Qvar 80 mcg] Benazepril HCl 20 mg PO DAILY 03/12/18 03/12/18 History Dextroamphetamine/Amphetamine 20 mg PO BID 03/12/18 03/12/18 History [Adderall] Latanoprost Ophth [Xalatan 0.005%] 1 drop BOTH EYES HS 03/12/18 03/12/18 History Loratadine [Claritin] 10 mg PO DAILY 03/12/18 03/12/18 History Omeprazole 20 mg PO DAILY PRN 03/12/18 03/12/18 History amLODIPine [Norvasc] 10 mg PO DAILY 03/12/18 03/12/18 History Allergies Allergy/AdvReac Type Severity Reaction Status Date / Time amoxicillin Allergy Rash/Hives Verified 03/12/18 10:40 cefaclor [From Ceclor] Allergy Rash/Hives Verified 03/12/18 10:40 clarithromycin [From Biaxin] Allergy Rash/Hives Verified 03/12/18 10:40 meperidine HCl [From Demerol] Allergy Rash/Hives/ Verified 03/12/18 10:40 vomiting sulfamethoxazole Allergy Rash/Hives Verified 03/12/18 10:40 [From Septra] trimethoprim [From Septra] Allergy Rash/Hives Verified 03/12/18 10:40 Mental Status Examination - This is a 47-year-old female in her second marriage who admits to suicide attempt with overdose with Tylenol. She feels that she is in no harm although she describes severe anxiety depression and this is her first hospitalization after a Tylenol overdose. She lacks insight. She lacks cognition to understand that she needs to be inpatient and stated that if she is inpatient she she doesn't want to comply with treatment. Explained to the sitter to stay in the room as she needs to be transferred to inpatient psychiatry when a bed is available. She has suicidal ideation and anxiety 8 out of 10 and depression 10 out of 10. She was seen in the emergency room and transferred the floor due to the serious nature of overdose of Tylenol. She has no auditory or visual hallucinations and does not appear to be responding to any. Further evaluation and treatment needs to be done at an inpatient psychiatric unit. She describes that her primary care doctor writes her Adderall and Xanax. She states that she has lack of focus and concentration and takes Xanax to sleep at night. Psychiatric impression: Major depressive disorder severe with recent suicide attempt Psychiatric recommendations: Transfer to inpatient psychiatry when bed is available and patient medically stabilized. Thank you for the consult Ezio Galicia D.O. PhD Plan: When medically stable transfer to inpatient psychiatry application/petition in the chart as well as first clinical certification for involuntary psychiatric admission. She meets criteria for inpatient treatment for major depressive disorder with anxiety with recent suicide attempt. Time with Patient: Less than 30
[2018-03-13] MEDS: NON-FORMULARY DRUG (Dextroamphetamine/Amphetamine [Adderall] 20 MG) PO SCH ×2 (16:15→20:25)
[2018-03-14] MEDS: ALPRAZolam 1 MG TAB PO PRN ×3 (02:00→19:42)
[2018-03-14 06:41] LABS: INR 0.9 (<1.2)
[2018-03-14 07:26] LABS: Albumin 3.4 g/dL (3.5-5.0); Bilirubin, Delta 0.2 mg/dL (0.0-0.2); Total Bilirubin 0.2 mg/dL (0.2-1.3); Total Protein 5.9 g/dL (6.3-8.2)
[2018-03-14] MEDS: HEPARIN SODIUM,PORCINE 5,000 UNIT/ML 1 ML VIAL SQ SCH ×2 (08:33→20:05)
[2018-03-14] MEDS: NICOTINE 21MG/24HR PATCH TRANSDERM SCH (08:39)
[2018-03-14] MEDS: amLODIPine 10 MG TAB PO SCH (08:39)
[2018-03-14] MEDS ORDERED: PANTOPRAZOLE 40 MG TABLET PO SCH (09:00)
[2018-03-14] MEDS: NON-FORMULARY DRUG (Dextroamphetamine/Amphetamine [Adderall] 20 MG) PO SCH ×2 (10:10→20:10)
--- NOTE | 2018-03-14 10:39 | P.PN ---
Subjective This is a pleasant 47 years old female with past medical history of GERD, hypertension, ARTHRITIS, chronic back pain and scoliosis, status post hysterectomy, Whitley's esophagus, hemorrhoids, depression and anxiety. Who presents with suicidal attempts and injections of many Tylenol, Motrin, antihypertensive and Xanax pills however when I saw the patient she told me she only took Tylenol and Motrin trying to kill herself she took the other medication for blood pressure and Xanax as prescribed for her. Patient was complaining from blood with nausea vomiting and epigastric pain which was nonspecific in character nonradiating about 4/10 in severity to . abdominal exam shows only mild tenderness with soft abdomen. Patient got N acetylcysteine in the emergency room and she is on IV fluids. Protonix is added Liver enzymes on admission was within normal limits while acetaminophen pain was elevated more than 200, slowly trending down 03/13/2018 Patient is awake and alert today she is oriented exit 3. Consider still at bedside. Patient does not look in distress. Denies chest pain or abdominal pain. No nausea vomiting. No change in bowel movement. No jaundice is noticed. Patient tolerating diet well. Hemodynamically stable. Liver enzymes and bilirubin within normal range. GI input is appreciated. 03/14/2018 Patient is fully awake and oriented x 3, To time place and person. Patient with no chest pain. No abdominal pain. No nausea vomiting and tolerating her breakfast with no problem she is having bowel movements with no diarrhea. She is hemodynamically stable. Liver enzymes and bilirubin from today's are still within the normal. Discussed case with the GI team and she is cleared for discharge from their perspective. Discussed with staff patient is medically stable to be sent to site units. However patient's wants a second psychiatric opinion Objective - Vital Signs Vital signs: Vital Signs Temp 97.8 F 03/14/18 04:00 Pulse 64 03/14/18 04:00 Resp 16 03/14/18 04:00 BP 142/64 03/14/18 04:00 Pulse Ox 99 03/14/18 04:00 Intake & Output 03/13/18 03/14/18 03/14/18 18:59 06:59 18:59 Intake Total 1720 960 240 Balance 1720 960 240 Weight 75 kg Intake: Oral 1720 960 240 Other: # Voids 1 1 - Exam GENERAL: The patient is alert and oriented x3, not in any acute distress. Well developed, well nourished. HEENT: Pupils are round and equally reacting to light. EOMI. No scleral icterus. No conjunctival pallor. Normocephalic, atraumatic. No pharyngeal erythema. No thyromegaly. CARDIOVASCULAR: S1 and S2 present. No murmurs, rubs, or gallops. PULMONARY: Chest is clear to auscultation, no wheezing or crackles. -ABDOMEN: Soft, mild epigastric tenderness, nondistended, normoactive bowel sounds. No palpable organomegaly. MUSCULOSKELETAL: No joint swelling or deformity. EXTREMITIES: No cyanosis, clubbing, or pedal edema. NEUROLOGICAL: Gross neurological examination did not reveal any focal deficits. SKIN: No rashes. - Labs CBC & Chem 7: 03/13/18 07:00 03/13/18 07:00 Labs: Abnormal Lab Results - Last 24 Hours (Table) 03/14/18 Range/Units 06:08 Total Protein 5.9 L (6.3-8.2) g/dL Albumin 3.4 L (3.5-5.0) g/dL Assessment and Plan Assessment: Over indigestion of pills including Tylenol, Motrin Tylenol toxicity Nausea vomiting Suicidal ideation History of GERD, Essential hypertension Chronic back pain and scoliosis History of hemorrhoids History of hysterectomy Plan: This is a pleasant 47 years old female who presents with suicidal attempt and over injections of pills including Tylenol. Continue with fluids and supportive measure. Call GI consult. Call psychiatry consult. Replace sitter 1-1 observation. Labs and medication were reviewed.. Continue same treatment. Continue with symptomatic treatment. Resume home medication. Monitor lytes and vitals. DVT and GI prophylaxis. Further recommendations of the clinical course of the patient DVT prophylaxis: Subcutaneous heparin GI Prophylaxis: Protonix Prognosis is guarded Discussed with staff and bedside nurse
[2018-03-14] MEDS ORDERED: LORATADINE 10 MG TAB PO PRN (11:01)
[2018-03-14 11:26] LABS: Basophils % (A) 0 %; Eosinophils # (A) 0.4 k/uL (0-0.7); Eosinophils % (A) 6 %; HCT 35.5 % (34.0-46.0); HGB 11.6 gm/dL (11.4-16.0); Lymphocytes # (A) 3.7 k/uL (1.0-4.8); Lymphocytes % (A) 53 %; MCH 32.7 pg (25.0-35.0); MCHC 32.8 g/dL (31.0-37.0); MCV 99.7 fL (80.0-100.0); Macrocytosis Slight; Monocytes # (A) 0.4 k/uL (0-1.0); Monocytes % (A) 5 %; Neutrophils # (A) 2.3 k/uL (1.3-7.7); Neutrophils % (A) 33 %; Platelet Count 372 k/uL (150-450); RBC 3.56 m/uL (3.80-5.40)
[2018-03-14] MEDS: RANITIDINE 150MG PO SCH ×2 (11:34→20:07)
[2018-03-14 11:39] LABS: Anion Gap 7 mmol/L; Blood Urea Nitrogen 13 mg/dL (7-17); Calcium 9.9 mg/dL (8.4-10.2); Carbon Dioxide 22 mmol/L (22-30); Chloride 112 mmol/L (98-107); Glucose 116 mg/dL (74-99); Sodium 141 mmol/L (137-145)
--- NOTE | 2018-03-14 12:11 | P.PN ---
Subjective Progress Note Date: 03/14/18 Principal diagnosis: Tylenol overdose LFTs PT/INR stable. No complaints. Afebrile. TB 0.2. AST 14. ALT 22. AP 67. INR 0.9. Objective - Vital Signs Vital signs: Vital Signs Temp 97.6 F 03/14/18 08:00 Pulse 87 03/14/18 08:00 Resp 18 03/14/18 08:00 BP 143/88 03/14/18 08:00 Pulse Ox 100 03/14/18 08:00 Intake & Output 03/13/18 03/14/18 03/14/18 18:59 06:59 18:59 Intake Total 1720 960 240 Balance 1720 960 240 Weight 75 kg Intake: Oral 1720 960 240 Other: # Voids 1 1 - Exam General appearance: The patient is alert, oriented, in no acute distress. HET: Head is normocephalic and atraumatic. Pupils are equal and reactive. Oropharynx is clear without lesions. Neck: Supple without lymphadenopathy. Trachea midline. Heart: S1 S2. Regular rate and rhythm. Lungs: No crackles or wheezes are heard. Abdomen: Soft, nontender, nondistended with bowel sounds. No peritoneal signs. No palpable organomegaly or masses. Extremities: Normal skin color and turgor. No cyanosis, rash, ulceration, clubbing, or edema. Radial and pedal pulses are 2/4 bilaterally. Neurological: No focal deficits. Strength and sensation are grossly intact. - Labs CBC & Chem 7: 03/14/18 06:08 03/14/18 06:08 Labs: Abnormal Lab Results - Last 24 Hours (Table) 03/14/18 03/14/18 03/14/18 Range/Units 06:08 06:08 06:08 RBC 3.56 L (3.80-5.40) m/uL Chloride 112 H (98-107) mmol/L Glucose 116 H (74-99) mg/dL Total Protein 5.9 L (6.3-8.2) g/dL Albumin 3.4 L (3.5-5.0) g/dL Assessment and Plan (1) Acetaminophen overdose Current Visit: Yes Status: Acute Code(s): T39.1X1A - POISONING BY 4- AMINOPHENOL DERIVATIVES, ACCIDENTAL, INIT SNOMED Code(s): 870897807 Plan: 1. LFTs PT/INR stable. We'll follow as needed. Assessment and plan a care discussed with Dr. Chapman
[2018-03-14 18:42] VITALS: RESP 18
[2018-03-14] MEDS: LATANOPROST 0.005% OPHTH DROPS 2.5 ML BTL BOTH EYES SCH (20:06)
[2018-03-15 07:02] LABS: INR 0.9 (<1.2); Prothrombin Time 9.8 sec (9.0-12.0)
[2018-03-15 07:08] LABS: Albumin 3.5 g/dL (3.5-5.0); Bilirubin, Delta 0.3 mg/dL (0.0-0.2); Total Bilirubin 0.3 mg/dL (0.2-1.3); Total Protein 6.1 g/dL (6.3-8.2)
[2018-03-15] MEDS: NON-FORMULARY DRUG (Dextroamphetamine/Amphetamine [Adderall] 20 MG) PO SCH (09:05)
[2018-03-15] MEDS: NICOTINE 21MG/24HR PATCH TRANSDERM SCH (09:17)
[2018-03-15] MEDS: amLODIPine 10 MG TAB PO SCH (09:17)
[2018-03-15] MEDS: HEPARIN SODIUM,PORCINE 5,000 UNIT/ML 1 ML VIAL SQ SCH (09:17)
[2018-03-15] MEDS: RANITIDINE 150MG PO SCH (09:18)
[2018-03-15] MEDS: ALPRAZolam 1 MG TAB PO PRN (09:25)
[2018-03-15 09:35] VITALS: TEMP 97.5
[2018-03-15 11:06] VITALS: BP 161/95; PULSE 92
--- NOTE | 2018-03-15 12:31 | P.DS ---
Providers Date of admission: 03/12/18 02:16 Attending physician: Ruth Shay Consults: 03/12/18 02:17 Consult Physician Routine Consulting Provider: Celso Bhatti Consult Reason/Comments: Suicide attempt, Tylenol overdose Do you want consulting provider notified?: Yes 03/13/18 01:37 Consult Physician Routine Consulting Provider: Ezio Galicia Consult Reason/Comments: Suicide attempt, Tylenol overdose Do you want consulting provider notified?: Yes, Notify in am Primary care physician: Stated None Hospital Course: This is a pleasant 47 years old female with past medical history of GERD, hypertension, ARTHRITIS, chronic back pain and scoliosis, status post hysterectomy, Whitley's esophagus, hemorrhoids, depression and anxiety. Who presents with suicidal attempts, she took 50-60 pills of extra strength Tylenol and 50-60 prescription Motrin pills. Patient was admitted to the general medical floor and she's been evaluated by GI team. On admission she has high lactic acid of 5.7 came back to normal at 1.8. And high acetaminophen level of 297 came back to less than 10. Serial liver enzymes and bilirubin remained within normal limits. Patient denies abdominal pain, no nausea vomiting and she is tolerating diet with normal bowel movements. Patient has been evaluated by GI team and cleared her for transfer to the psych unit. Patient is medically stable to be transferred to the psychiatrist units. Patient has been evaluated by psychiatrist recommended inpatient psychiatrist. Cert has been signed. Sitter at bedside. Patient can not sign AMA till cleared by psychiatry. Patient will be transferred to psych hospital at [facility] in [place] physical exam Gen.: Patient alert awake and oriented X 3, NOT IN DISTRESS CVS: s1-s2, RRR, no murmur CHEST:bilateral CTA, no wheezing or crepitation Abdomen: Soft, no tenderness, no distention, positive bowel sounds Extremities: No leg edema or induration time spent more than 35 minutes Patient Condition at Discharge: Serious Plan - Discharge Summary Discharge Rx Participant: No New Discharge Prescriptions: New Heparin Sodium,Porcine [Heparin Sodium] 5,000 unit SQ Q12HR vial Nicotine 21Mg/24Hr Patch [Habitrol] 1 patch TRANSDERM DAILY patch Continue Ranitidine HCl [Zantac] 150 mg PO BID ALPRAZolam [Xanax] 2 mg PO TID PRN PRN Reason: Anxiety Dextroamphetamine/Amphetamine [Adderall] 20 mg PO BID Albuterol Sulfate [Proair Hfa] 2 puff INHALATION RT-QID PRN PRN Reason: Shortness Of Breath amLODIPine [Norvasc] 10 mg PO DAILY Benazepril HCl 20 mg PO DAILY Latanoprost Ophth [Xalatan 0.005%] 1 drop BOTH EYES HS Loratadine [Claritin] 10 mg PO DAILY Beclomethasone Dip 80 Mcg/Puff [Qvar 80 mcg] 1 puff INHALATION RT-BID Discontinued Ibuprofen [Motrin] 800 mg PO Q8H PRN PRN Reason: Pain Omeprazole 20 mg PO DAILY PRN PRN Reason: GERD Discharge Medication List ALPRAZolam [Xanax] 2 mg PO TID PRN 04/23/15 [History] Ranitidine HCl [Zantac] 150 mg PO BID 04/23/15 [History] Albuterol Sulfate [Proair Hfa] 2 puff INHALATION RT-QID PRN 03/12/18 [History] Beclomethasone Dip 80 Mcg/Puff [Qvar 80 mcg] 1 puff INHALATION RT-BID 03/12/18 [ History] Benazepril HCl 20 mg PO DAILY 03/12/18 [History] Dextroamphetamine/Amphetamine [Adderall] 20 mg PO BID 03/12/18 [History] Latanoprost Ophth [Xalatan 0.005%] 1 drop BOTH EYES HS 03/12/18 [History] Loratadine [Claritin] 10 mg PO DAILY 03/12/18 [History] amLODIPine [Norvasc] 10 mg PO DAILY 03/12/18 [History] Heparin Sodium,Porcine [Heparin Sodium] 5,000 unit SQ Q12HR vial 03/15/18 [Rx] Nicotine 21Mg/24Hr Patch [Habitrol] 1 patch TRANSDERM DAILY patch 03/15/18 [Rx] Follow up Appointment(s)/Referral(s): None,Stated [Primary Care Provider] - 1-2 days Discharge Disposition: TRANSFER TO PSYCH HOSP/UNIT
== END 2018-03-15 14:08 | DRG 918 ==
LOC: EC 00:39 → 3SCARD 02:16
PROVIDERS: ADMIT Hospitalist; ATTEND Hospitalist
DX: T39.1X2A Poisoning by 4-Aminophenol derivatives, intentional self-harm, initial encounter (principal); E87.2 Acidosis; T39.311A Poisoning by propionic acid derivatives, accidental (unintentional), initial encounter; F17.200 Nicotine dependence, unspecified, uncomplicated; F32.9 Major depressive disorder, single episode, unspecified; G89.29 Other chronic pain; I10 Essential (primary) hypertension; K21.9 Gastro-esophageal reflux disease without esophagitis; K22.70 Barrett's esophagus without dysplasia; M41.9 Scoliosis, unspecified; Z79.899 Other long term (current) drug therapy; Z86.19 Personal history of other infectious and parasitic diseases; Z90.710 Acquired absence of both cervix and uterus; F41.9 Anxiety disorder, unspecified; F40.240 Claustrophobia; M19.90 Unspecified osteoarthritis, unspecified site; Z86.74 Personal history of sudden cardiac arrest
CPT/HCPCS: 36415; 80048; 80053; 80076; 80306; 80320; 81003; 81025; 83520; 83605; 83735; 84100; 85025; 85610; 90732; 93005; 94760

== ENCOUNTER 2019-05-23 10:56 | Day surgery (SDC) | payer OTHER ==
[2019-05-20 14:20] VITALS: BMI 33.0
--- NOTE | 2019-05-23 07:19 | P.GSHP ---
History of Present Illness H&P Date: 05/23/19 CHIEF COMPLAINT: GERD HISTORY OF PRESENT ILLNESS: The patient is a 46-year-old female who presents reports gastroesophageal reflux disease. Upper endoscopy was offered for further evaluation and management. PAST MEDICAL HISTORY: Please see list. PAST SURGICAL HISTORY: Please see list. MEDICATIONS: Please see list. ALLERGIES: Please see list. SOCIAL HISTORY: No illicit drug use FAMILY HISTORY: No reports of Crohn disease or ulcerative colitis. REVIEW OF ORGAN SYSTEMS: CONSTITUTIONAL: No reports of fevers or chills. GI: Denies any blood in stools or constipation. PHYSICAL EXAM: VITAL SIGNS: Stable GENERAL: Well-developed and pleasant in no acute distress. HEENT: No scleral icterus. Extraocular movements grossly intact. Moist buccal mucosa. NECK: Supple without lymphadenopathy. CHEST: Unlabored respirations. Equal bilateral excursions. CARDIOVASCULAR: Regular rate and rhythm. Distal 2+ pulses. ABDOMEN: Soft, nondistended. MUSCULOSKELETAL: No clubbing, cyanosis, or edema. ASSESSMENT: 1. Gastroesophageal reflux disease PLAN: 1. Recommend proceeding with an upper endoscopy Past Medical History Past Medical History: COPD, GERD/Reflux, Hypertension, Osteoarthritis (OA) Additional Past Medical History / Comment(s): Chronic back pain, scoliosis, bulging discs, several bronchitis's, past H pylori, Whitley's esophagus, hiatal hernia, hx thrombosed/ruptured hemorrhoids History of Any Multi-Drug Resistant Organisms: None Reported Past Surgical History: Breast Surgery, Hysterectomy, Tubal Ligation Additional Past Surgical History / Comment(s): R breast biopsy (has marker), drainage of thrombosed hemorrhoid, EGD, esophageal manometry/motility study. hysterectomy still has ovaries Past Anesthesia/Blood Transfusion Reactions: Previous Problems w/ Anesthesia Additional Past Anesthesia/Blood Transfusion Reaction / Comment(s): Pt states she arrested during hemorrhoid surgery. Pt has claustrophobia. Smoking Status: Current every day smoker - Past Family History Mother History Unknown: Yes Family Medical History: No Reported History Additional Family Medical History / Comment(s): Mother is alive. Pt does not know her medical hx Father Family Medical History: No Reported History Additional Family Medical History / Comment(s): Father is healthy. Sister(s) Additional Family Medical History / Comment(s): brain surgery Brother(s) Additional Family Medical History / Comment(s): brain surgery Medications and Allergies Home Medications Medication Instructions Recorded Confirmed Type Albuterol Sulfate [Proair Hfa] 2 puff INHALATION RT-QID PRN 03/12/18 05/20/19 History Latanoprost Ophth [Xalatan 0.005%] 1 drop BOTH EYES BID 03/12/18 05/20/19 History Loratadine [Claritin] 10 mg PO DAILY 03/12/18 05/20/19 History Nicotine 21Mg/24Hr Patch [Habitrol] 1 patch TRANSDERM DAILY patch 03/15/18 05/20/19 Rx ALPRAZolam [Xanax] 2 mg PO DAILY PRN 05/20/19 05/20/19 History Albuterol Nebulized [Ventolin 2.5 mg INHALATION Q4H PRN 05/20/19 05/20/19 Histor y Nebulized] Azelastine HCl [Optivar 0.05% 1 drop BOTH EYES DAILY 05/20/19 05/20/19 History Ophth Soln] Omeprazole 20 mg PO DAILY 05/20/19 05/20/19 History QUEtiapine [SEROquel] 50 mg PO DAILY 05/20/19 05/20/19 History Allergies Allergy/AdvReac Type Severity Reaction Status Date / Time amoxicillin Allergy Rash/Hives Verified 03/12/18 10:40 cefaclor [From Ceclor] Allergy Rash/Hives Verified 03/12/18 10:40 clarithromycin [From Biaxin] Allergy Rash/Hives Verified 03/12/18 10:40 meperidine HCl [From Demerol] Allergy Rash/Hives/ Verified 03/12/18 10:40 vomiting oxycodone Allergy Unknown Verified 05/20/19 14:03 Penicillins Allergy Unknown Verified 05/20/19 14:02 sulfamethoxazole Allergy Rash/Hives Verified 03/12/18 10:40 [From Septra] trimethoprim [From Septra] Allergy Rash/Hives Verified 03/12/18 10:40
[~2019-05-23 10:56] MED LIST: LACTATED RINGERS 1,000 ML IV SCH; LIDOCAINE 1% 20 ML VIAL (10MG/ML) FOR IV START INTRADERMA PRN
[2019-05-23 11:21] VITALS: TEMP 96.9
[2019-05-23] MEDS ORDERED: PROPOFOL 10 MG/ML 20 ML VIAL IV ONE (12:25)
--- NOTE | 2019-05-23 12:39 | P.PCN ---
Date of Procedure: 05/23/19 Description of Procedure: PREOPERATIVE DIAGNOSIS: Gastroesophageal reflux disease. POSTOPERATIVE DIAGNOSIS: Gastritis. Gastroesophageal reflux disease. Diaphragmatic hiatal hernia Whitley's esophagus OPERATION: Esophagogastroduodenoscopy with biopsies along antrum and distal esophagus SURGEON: Aubree Allred MD ANESTHESIA: MAC. INDICATIONS: The patient is a 48-year-old female who presents with a history of reflux disease. Benefits and risks of the procedure were described. Informed consent was obtained. DESCRIPTION: The patient was brought into the endoscopy suite and laid in the left lateral decubitus position. An Olympus gastroscope was passed along the posterior oropharynx down to the distal esophagus where the squamocolumnar junction was encountered at 35 cm from the incisors. The stomach was entered and no bile reflux was found. Additional findings are listed below. Biopsies with cold forceps were obtained of the antrum. The first through third portion of the duodenum was examined and unremarkable. Retroflexion of the scope confirmed Hill grade 3 lower esophageal valve. The squamocolumnar junction demonstrated LA grade D erosive esophagitis. The stomach was desufflated. The patient tolerated the procedure well. FINDINGS: Squamocolumnar junction 35 cm from the incisors. Diaphragmatic hiatus at 38 cm. Hiatal hernia, 3 cm Hill grade 3 lower esophageal valve. LA grade D erosive esophagitis with cold forceps biopsies obtained No active duodenitis. Chronic gastritis with recent bleed RECOMMENDATIONS: 1. Recommend repair of diaphragmatic hiatal hernia 2. Omeprazole 40 mg daily 3. Upper endoscopy as needed. Plan - Discharge Summary Discharge Rx Participant: No New Discharge Prescriptions: Continue Albuterol Sulfate [Proair Hfa] 2 puff INHALATION RT-QID PRN PRN Reason: Shortness Of Breath Latanoprost Ophth [Xalatan 0.005%] 1 drop BOTH EYES BID Loratadine [Claritin] 10 mg PO DAILY Nicotine 21Mg/24Hr Patch [Habitrol] 1 patch TRANSDERM DAILY patch Albuterol Nebulized [Ventolin Nebulized] 2.5 mg INHALATION Q4H PRN PRN Reason: Dyspnea Omeprazole 20 mg PO DAILY ALPRAZolam [Xanax] 2 mg PO DAILY PRN PRN Reason: Anxiety QUEtiapine [SEROquel] 50 mg PO DAILY Azelastine HCl [Optivar 0.05% Ophth Soln] 1 drop BOTH EYES DAILY Discharge Medication List Albuterol Sulfate [Proair Hfa] 2 puff INHALATION RT-QID PRN 03/12/18 [History] Latanoprost Ophth [Xalatan 0.005%] 1 drop BOTH EYES BID 03/12/18 [History] Loratadine [Claritin] 10 mg PO DAILY 03/12/18 [History] Nicotine 21Mg/24Hr Patch [Habitrol] 1 patch TRANSDERM DAILY patch 03/15/18 [Rx] ALPRAZolam [Xanax] 2 mg PO DAILY PRN 05/20/19 [History] Albuterol Nebulized [Ventolin Nebulized] 2.5 mg INHALATION Q4H PRN 05/20/19 [History] Azelastine HCl [Optivar 0.05% Ophth Soln] 1 drop BOTH EYES DAILY 05/20/19 [History] Omeprazole 20 mg PO DAILY 05/20/19 [History] QUEtiapine [SEROquel] 50 mg PO DAILY 05/20/19 [History] Follow up Appointment(s)/Referral(s): Aubree Allred MD [STAFF PHYSICIAN] - 06/11/19 Patient Instructions/Handouts: *Surgery [facility] - (Anesthesia) Discharge Instructions Outpatient Surgery, How to Stop Smoking (DC), Hiatal Hernia (DC), Whitley Esophagus (DC), Upper Endoscopy (DC) Discharge Disposition: HOME SELF-CARE
[2019-05-23 13:16] VITALS: BP 152/88; PULSE 78; RESP 14
== END 2019-05-23 13:36 | disposition home or self-care (01) ==
LOC: ORWHC2ENDO 10:56
PROVIDERS: ATTEND Surgery Plastic and Reconstructive Surgery
DX: K22.70 Barrett's esophagus without dysplasia (principal); K29.50 Unspecified chronic gastritis without bleeding; K44.9 Diaphragmatic hernia without obstruction or gangrene; K21.9 Gastro-esophageal reflux disease without esophagitis; I10 Essential (primary) hypertension; M19.90 Unspecified osteoarthritis, unspecified site; G89.29 Other chronic pain; M54.9 Dorsalgia, unspecified; F39 Unspecified mood [affective] disorder; F32.9 Major depressive disorder, single episode, unspecified; M41.9 Scoliosis, unspecified; Z86.19 Personal history of other infectious and parasitic diseases; Z90.710 Acquired absence of both cervix and uterus; Z98.51 Tubal ligation status; F40.240 Claustrophobia; F17.200 Nicotine dependence, unspecified, uncomplicated; Z79.899 Other long term (current) drug therapy; Z88.1 Allergy status to other antibiotic agents; Z88.5 Allergy status to narcotic agent; Z88.0 Allergy status to penicillin; Z88.2 Allergy status to sulfonamides
CPT/HCPCS: 88305; 43239; J2704

== ENCOUNTER → 2019-05-24 | Outpatient (CLI) | payer OTHER ==
--- NOTE | 2019-05-24 16:19 | US ---
EXAMINATION TYPE: US gallbladder DATE OF EXAM: 05/24/2019 COMPARISON: NONE CLINICAL HISTORY: K81.9 Cholecystitis, unspecified. abdominal pain post prandially, nausea x 7 months EXAM MEASUREMENTS: Liver Length: 18.5 cm Gallbladder Wall: 0.1 cm CBD: 0.3 cm Right Kidney: 10.4 x 4.9 x 4.4 cm Pancreas: Partially Obscured by bowel gas Liver: Increased attenuation, decreased visualization of vessels suggestive of fatty infiltrate, foc al sparing near GB Gallbladder: wnl Evidence for sonographic Aguilar's sign: No CBD: wnl Right Kidney: wnl IMPRESSION: 1. Hepatomegaly with moderate fatty infiltration of the liver. 2. There is limitation due to bowel gas.
== END | disposition home or self-care (01) ==
LOC: RADUSMAIN 12:32
PROVIDERS: ATTEND Surgery Plastic and Reconstructive Surgery
DX: K76.0 Fatty (change of) liver, not elsewhere classified (principal); R16.0 Hepatomegaly, not elsewhere classified; R14.3 Flatulence
CPT/HCPCS: 76705

== ENCOUNTER 2019-05-31 10:54 | Day surgery (SDC) | payer OTHER ==
--- NOTE | 2019-05-31 07:53 | P.GSHP ---
History of Present Illness H&P Date: 05/31/19 CHIEF COMPLAINT: Cholecystitis HISTORY OF PRESENT ILLNESS: The patient is a 48-year-old female who presents with history of epigastric including right upper quadrant abdominal pain. She underwent diagnostic studies for her gallbladder. Separately her clinical picture was consistent with cholecystitis. Now she presents for surgical intervention. PAST MEDICAL HISTORY: Please see list PAST SURGICAL HISTORY: Please see list MEDICATIONS: Please see list ALLERGIES: Please see list SOCIAL HISTORY: Please see list FAMILY HISTORY: Please see list REVIEW OF ORGAN SYSTEMS: CONSTITUTIONAL: No reports of fevers or chills. HEENT: Denies any troubles with the vision or hearing. PHYSICAL EXAM: VITAL SIGNS: Afebrile vital signs stable GENERAL: Well-developed pleasant in no acute distress. HEENT: No scleral icterus. Extraocular movements grossly intact. Moist buccal mucosa. NECK: Supple without lymphadenopathy. CHEST: Unlabored respirations. Equal bilateral excursions. CARDIOVASCULAR: Regular rate regular rhythm rhythm. Distal 2+ pulses. ABDOMEN: Soft, nondistended. Tender along the epigastrium and right upper quadrant. MUSCULOSKELETAL: No clubbing, cyanosis, or edema. NEURO: Cranial nerves II to XII within normal limits. No focal or lateralizing signs. PSYCH: Alert and oriented to person, place and time. SKIN: Well-perfused good skin turgor. ASSESSMENT: 1. Epigastric and right upper quadrant abdominal pain 2. Chronic cholecystitis 3. Symptomatic gallstones. PLAN: 1. Will need a robotic cholecystectomy possible open. Benefits and risks were described. 2. Heparin for DVT prophylaxis 5000 units. 3. Antibiotic prophylaxis. Past Medical History Past Medical History: GERD/Reflux, Hypertension, Osteoarthritis (OA) Additional Past Medical History / Comment(s): Chronic vack pain, scoliosis, bulging discs, several bronchitis's, past H pylori, Whitley's esophagus, hialtal hernia, thrombosed/ruptured hemorrhoids History of Any Multi-Drug Resistant Organisms: None Reported Past Surgical History: Breast Surgery, Hysterectomy, Tubal Ligation Additional Past Surgical History / Comment(s): R breast biopsy (has marker), drainage of thrombosed hemorrhoid, EGD, esophageal manometry/motility study Past Anesthesia/Blood Transfusion Reactions: Previous Problems w/ Anesthesia Additional Past Anesthesia/Blood Transfusion Reaction / Comment(s): Pt states she arrested during hemorrhoid surgery. Pt has clausterphobia. Smoking Status: Current every day smoker - Past Family History Mother History Unknown: Yes Family Medical History: No Reported History Additional Family Medical History / Comment(s): Mother is alive. Pt does not know her medical hx Father Family Medical History: No Reported History Additional Family Medical History / Comment(s): Father is healthy. Sister(s) Additional Family Medical History / Comment(s): brain surgery Brother(s) Additional Family Medical History / Comment(s): brain surgery Medications and Allergies Home Medications Medication Instructions Recorded Confirmed Type Albuterol Sulfate [Proair Hfa] 2 puff INHALATION RT-QID PRN 03/12/18 05/23/19 History Latanoprost Ophth [Xalatan 0.005%] 1 drop BOTH EYES BID 03/12/18 05/20/19 History Loratadine [Claritin] 10 mg PO DAILY 03/12/18 05/20/19 History Nicotine 21Mg/24Hr Patch [Habitrol] 1 patch TRANSDERM DAILY patch 03/15/18 05/23/19 Rx ALPRAZolam [Xanax] 2 mg PO DAILY PRN 05/20/19 05/23/19 History Albuterol Nebulized [Ventolin 2.5 mg INHALATION Q4H PRN 05/20/19 05/23/19 History Nebulized] Azelastine HCl [Optivar 0.05% 1 drop BOTH EYES DAILY 05/20/19 05/20/19 History Ophth Soln] Omeprazole 20 mg PO DAILY 05/20/19 05/20/19 History QUEtiapine [SEROquel] 50 mg PO DAILY 05/20/19 05/20/19 History Allergies Allergy/AdvReac Type Severity Reaction Status Date / Time amoxicillin Allergy Rash/Hives Verified 05/23/19 11:19 cefaclor [From Ceclor] Allergy Rash/Hives Verified 05/23/19 11:19 clarithromycin [From Biaxin] Allergy Rash/Hives Verified 05/23/19 11:19 meperidine HCl [From Demerol] Allergy Rash/Hives/ Verified 05/23/19 11:19 vomiting oxycodone Allergy Unknown Verified 05/23/19 11:19 Penicillins Allergy Unknown Verified 05/23/19 11:19 Sulfa (Sulfonamide Allergy Rash/Hives Verified 05/23/19 11:19 Antibiotics) sulfamethoxazole Allergy Rash/Hives Verified 05/23/19 11:19 [From ] trimethoprim [From ] Allergy Rash/Hives Verified 05/23/19 11:19
[~2019-05-31 10:54] MED LIST changes: +ACETAMINOPHEN TAB 500 MG TAB PO STA; +CLINDAMYCIN 900 MG in DEXTROSE 5% IN WATER 50 ML IVPB ONE; +DEXAMETHASONE SOD PHOSPHATE 10 MG/ML 1 ML VIAL IV STA; +GABAPENTIN 300 MG CAP PO STA; +HEPARIN SODIUM,PORCINE 5,000 UNIT/ML 1 ML VIAL SQ ONE; +INDOCYANINE GREEN 25 MG VIAL IV STA; -LACTATED RINGERS 1,000 ML IV SCH; -LIDOCAINE 1% 20 ML VIAL (10MG/ML) FOR IV START INTRADERMA PRN
[2019-05-31] MEDS ORDERED: LACTATED RINGERS 1,000 ML IV SCH (12:40)
[2019-05-31] MEDS ORDERED: DEXAMETHASONE SOD PHOSPHATE 10 MG/ML 1 ML VIAL IV ONE (12:40)
[2019-05-31] MEDS ORDERED: ONDANSETRON 4 MG/2 ML VIAL IVP ONE (12:40)
[2019-05-31] MEDS ORDERED: MIDAZOLAM 2 MG/2 ML VIAL IV PRN (12:40)
[2019-05-31] MEDS ORDERED: diphenhydrAMINE 50 MG/ML 1 ML VIAL IVP STA (12:40)
[2019-05-31] MEDS ORDERED: SCOPOLAMINE 1.5MG/72HR PATCH TRANSDERM ONE (12:40)
[2019-05-31 13:02] VITALS: RESP 16
[2019-05-31] MEDS ORDERED: NEOSTIGMINE 1 MG/ML 10 ML VIAL ONE (14:05)
[2019-05-31] MEDS ORDERED: ROCURONIUM BROMIDE 10 MG/ML 5 ML VIAL IV ONE (14:05)
[2019-05-31] MEDS ORDERED: LIDOCAINE 1% INJ 10MG/ML (20 ML MDV) ONE (14:05)
[2019-05-31] MEDS ORDERED: HYDROmorphone (PF) 1 MG/ML ONE (14:05)
[2019-05-31] MEDS ORDERED: PROPOFOL 10 MG/ML 20 ML VIAL IV ONE (14:05)
[2019-05-31] MEDS ORDERED: GLYCOPYRROLATE 0.2 MG/ML 2 ML VIAL ONE (14:05)
[2019-05-31] MEDS ORDERED: fentaNYL (PF) 50 MCG/ML 2 ML AMP ONE (14:05)
[2019-05-31] MEDS ORDERED: MIDAZOLAM 2 MG/2 ML VIAL ONE (14:05)
[2019-05-31] MEDS ORDERED: diphenhydrAMINE 50 MG/ML 1 ML VIAL ONE (14:05)
[2019-05-31] MEDS ORDERED: SUCCINYLCHOLINE CHLORIDE 100 MG/5 ML SYR IV ONE (14:05)
[2019-05-31] MEDS ORDERED: LIDOCAINE 2%-EPI 1:100,000 20 ML VIAL SQ ONE (14:37)
[2019-05-31 15:28] VITALS: TEMP 98.4
--- NOTE | 2019-05-31 15:28 | P.OP ---
Date of Procedure: 05/31/19 Description of Procedure: SURGEON: AUBREE ALLRED MD PREOPERATIVE DIAGNOSES: 1. Right upper quadrant abdominal pain 2. Chronic cholecystitis 3. Anxiety disorder 4. Tobacco abuse disorder 5. Gastroesophageal reflux disease 6. History of Whitley's esophagus 7. Obesity due to excess calories, BMI 32.8 POSTOPERATIVE DIAGNOSES: 1. Right upper quadrant abdominal pain 2. Chronic cholecystitis 3. Anxiety disorder 4. Tobacco abuse disorder 5. Gastroesophageal reflux disease 6. History of Whitley's esophagus 7. Obesity due to excess calories, BMI 32.8 OPERATION: Robotic-assisted da Jaz Xi laparoscopic cholecystectomy, multiport with FIREFLY ESTIMATED BLOOD LOSS: 5 mL. SPECIMENS REMOVED: Gallbladder. COMPLICATIONS: None. OPERATIVE FINDINGS: 1. Chronic cholecystitis 2. Console time 15 minutes INDICATIONS: The patient is a 48-year-old female who presents with cholelcystitis. Surgical intervention with a laparoscopic cholecystectomy including robotic assisted laparoscopic approach was described. Benefits and risks of the procedure including but not limited to bleeding, infection, injury to the biliary tree was described. Informed consent was obtained. DESCRIPTION OF PROCEDURE: Patient was brought to the operating room, placed in supine position. After general induction, the abdomen had been prepped and draped in standard sterile fashion. The robotic da Jaz XI system was primed. After a timeout protocol was performed, the patient had been prepped and draped in standard sterile fashion. The patient was injected with indocyanine green. A 5 mm 0 degrees laparoscopic trocar entry was performed along the left upper quadrant. The abdomen insufflated to 15 mmHg pressure which was tolerated well. Diagnostic laparoscopy demonstrated no injury to bowel viscera or mesentery. The liver surface was unremarkable. Next, two 8 mm robotic ports were placed along the right upper abdomen. The camera 8-mm port was maintained along the epigastrium. Another 8 mm port was placed along the left upper abdominal wall after exchanging the 5 mm port. Please note that the ports were placed at least 10 to 15 cm away from the target anatomy of the gallbladder. The robot was docked along the left lateral abdomen. The patient was repositioned in reverse Trendelenburg position. Using a grasper for arm 3, a grasper for arm 4, including hook cautery for arm 1, the robotic system was docked and primed as described. Instruments were interchanged by the logging assistant including hook cautery, Bovie cautery and clip appliers. I had sat at the console. The gallbladder fundus was retracted over the dome of the liver. Initial attention was brought to the infundibulum which was gently retracted in the inferior lateral approach. Using a grasper, the cystic duct including the cystic artery was carefully skeletonized. FIREFLY was used to identify the cystic artery and cystic structures. A critical view of safety was obtained. Large PLASTIC clips were used throughout the entire case. Using a clip auto adjudication specialist 2 clips were placed proximally, and 1 clip was placed between the infundibulum and cystic duct and divided using cautery. Next, the cystic artery was similarly clipped and cauterized. Electro-Bovie cautery was used to remove the gallbladder from the hepatic fossa. Hemostasis was checked and found to be adequate. The robot was undocked. I re-scrubbed into the case. Using a 10 mm Endo Catch bag via the left upper quadrant incision, the specimen was removed from the abdominal cavity. All pneumoperitoneum instruments were evacuated from the abdominal cavity. The incisions were reapproximated using 4-0 Monocryl in an interrupted subcuticular fashion. Fascial defects were less than 8 mm in size. Please note along the trocar sites, local anesthetic was placed as a field block prior to insertion of all instruments. Liquid glue was applied to the skin. At the end of the procedure needle, sponge, and instrument count had been verified correct by the surgical aides teacher. The patient was transferred to postanesthesia care unit in stable condition. Intraoperative films were shared with the patient's family who were very pleased with the level of care. Plan - Discharge Summary New Discharge Prescriptions: Continue Albuterol Sulfate [Proair Hfa] 2 puff INHALATION RT-QID PRN PRN Reason: Shortness Of Breath Latanoprost Ophth [Xalatan 0.005%] 1 drop BOTH EYES BID Loratadine [Claritin] 10 mg PO DAILY Nicotine 21Mg/24Hr Patch [Habitrol] 1 patch TRANSDERM DAILY patch Albuterol Nebulized [Ventolin Nebulized] 2.5 mg INHALATION Q4H PRN PRN Reason: Dyspnea Omeprazole 20 mg PO DAILY ALPRAZolam [Xanax] 2 mg PO DAILY PRN PRN Reason: Anxiety QUEtiapine [SEROquel] 50 mg PO DAILY Azelastine HCl [Optivar 0.05% Ophth Soln] 1 drop BOTH EYES DAILY Discharge Medication List Albuterol Sulfate [Proair Hfa] 2 puff INHALATION RT-QID PRN 03/12/18 [History] Latanoprost Ophth [Xalatan 0.005%] 1 drop BOTH EYES BID 03/12/18 [History] Loratadine [Claritin] 10 mg PO DAILY 03/12/18 [History] Nicotine 21Mg/24Hr Patch [Habitrol] 1 patch TRANSDERM DAILY patch 03/15/18 [Rx] ALPRAZolam [Xanax] 2 mg PO DAILY PRN 05/20/19 [History] Albuterol Nebulized [Ventolin Nebulized] 2.5 mg INHALATION Q4H PRN 05/20/19 [History] Azelastine HCl [Optivar 0.05% Ophth Soln] 1 drop BOTH EYES DAILY 05/20/19 [History] Omeprazole 20 mg PO DAILY 05/20/19 [History] QUEtiapine [SEROquel] 50 mg PO DAILY 05/20/19 [History] Follow up Appointment(s)/Referral(s): Aubree Allred MD [STAFF PHYSICIAN] - 06/04/19 Patient Instructions/Handouts: Scopolamine (Absorbed through the skin) Activity/Diet/Wound Care/Special Instructions: No lifting over 10 pounds in 2 weeks until June 13. August shower. No bath tub soaks for two weeks until June 13 Diet as tolerated. No driving while on narcotics. Use Tylenol and ibuprofen or Aleve scheduled for the next 24-48 hours for best pain relief. Use ice along incisions for the today to prevent swelling. Discharge Disposition: HOME SELF-CARE
[2019-05-31] MEDS ORDERED: KETOROLAC 30 MG/ML 1 ML VIAL IVP PRN (15:30)
[2019-05-31] MEDS: fentaNYL (PF) 50 MCG/ML 2 ML AMP IV PRN ×4 (15:42→15:59)
[2019-05-31] MEDS ORDERED: SIMETHICONE 80 MG CHEWABLE PO ONE (16:00)
[2019-05-31 17:27] VITALS: BP 127/77; PULSE 81
== END 2019-05-31 17:27 | disposition home or self-care (01) ==
LOC: OR 10:54
PROVIDERS: ATTEND Surgery Plastic and Reconstructive Surgery
DX: K81.1 Chronic cholecystitis (principal); F41.9 Anxiety disorder, unspecified; K21.9 Gastro-esophageal reflux disease without esophagitis; E66.09 Other obesity due to excess calories; K22.70 Barrett's esophagus without dysplasia; F90.9 Attention-deficit hyperactivity disorder, unspecified type; F32.9 Major depressive disorder, single episode, unspecified; J45.909 Unspecified asthma, uncomplicated; I10 Essential (primary) hypertension; M19.90 Unspecified osteoarthritis, unspecified site; F17.200 Nicotine dependence, unspecified, uncomplicated; F40.240 Claustrophobia; M54.9 Dorsalgia, unspecified; G89.29 Other chronic pain; M41.9 Scoliosis, unspecified; Z86.19 Personal history of other infectious and parasitic diseases; Z98.51 Tubal ligation status; Z87.19 Personal history of other diseases of the digestive system; Z68.32 Body mass index [BMI] 32.0-32.9, adult; Z88.0 Allergy status to penicillin; Z88.2 Allergy status to sulfonamides; Z88.5 Allergy status to narcotic agent; Z88.1 Allergy status to other antibiotic agents; Z90.710 Acquired absence of both cervix and uterus; Z79.899 Other long term (current) drug therapy
CPT/HCPCS: 88304; 47562; J2250; J1200; J1644; J1100; J2710; J0690; J2405; J2001; J3010; J1170; J0330; J2704

== ENCOUNTER 2020-04-15 09:29 | Day surgery (SDC) | payer OTHER ==
[2020-03-30 13:40] VITALS: BMI 33.5
--- NOTE | 2020-04-15 08:45 | P.GSHP ---
History of Present Illness H&P Date: 04/15/20 CHIEF COMPLAINT: Colon screen HISTORY OF PRESENT ILLNESS: The patient is a 49-year-old female who presents for colon screen. Lower endoscopy was offered for further evaluation and management. PAST MEDICAL HISTORY: Please see list. PAST SURGICAL HISTORY: Please see list. MEDICATIONS: Please see list. ALLERGIES: Please see list. SOCIAL HISTORY: No illicit drug use FAMILY HISTORY: No reports of Crohn disease or ulcerative colitis. REVIEW OF ORGAN SYSTEMS: CONSTITUTIONAL: No reports of fevers or chills. PHYSICAL EXAM: VITAL SIGNS: Stable GENERAL: Well-developed pleasant in no acute distress. HEENT: No scleral icterus. Extraocular movements grossly intact. Moist buccal mucosa. NECK: Supple without lymphadenopathy. CHEST: Unlabored respirations. Equal bilateral excursions. CARDIOVASCULAR: Regular rate and rhythm. Distal 2+ pulses. ABDOMEN: Soft, nontender, nondistended. MUSCULOSKELETAL: No clubbing, cyanosis, or edema. ASSESSMENT: 1. Colon screen. PLAN: 1. Recommend proceeding with a lower endoscopy Past Medical History Past Medical History: COPD, GERD/Reflux, Hypertension, Musculoskeletal Disorder, Osteoarthritis (OA) Additional Past Medical History / Comment(s): Chronic back pain, Scoliosis, bulging discs, Bronchitis, several times, hx H Pylori, Whitley's Esophagus, hiatal hernia, thrombosed/ruptured hemorrhoids, ovarian cysts. History of Any Multi-Drug Resistant Organisms: None Reported Past Surgical History: Breast Surgery, Cholecystectomy, Hysterectomy, Tubal Ligation Additional Past Surgical History / Comment(s): Right breast biopsy (has marker), drainage of thrombosed hemorrhoid, EGD, esophageal manometry/motility study. Past Anesthesia/Blood Transfusion Reactions: Previous Problems w/ Anesthesia Additional Past Anesthesia/Blood Transfusion Reaction / Comment(s): Pt states she arrested during hemorrhoid surgery. Pt has claustrophobia. "Myself and my Uncle don't go out easy and don't come out easy." Smoking Status: Current every day smoker - Past Family History Mother History Unknown: Yes Family Medical History: No Reported History Additional Family Medical History / Comment(s): Mother is alive. Pt does not know her medical hx Father Family Medical History: No Reported History Additional Family Medical History / Comment(s): Father is healthy. Sister(s) Additional Family Medical History / Comment(s): brain surgery Brother(s) Additional Family Medical History / Comment(s): brain surgery Medications and Allergies Home Medications Medication Instructions Recorded Confirmed Type Albuterol Sulfate [Proair Hfa] 2 puff INHALATION RT-QID PRN 03/12/18 04/09/20 History Latanoprost Ophth [Xalatan 0.005%] 1 drop BOTH EYES HS 03/12/18 04/09/20 History Loratadine [Claritin] 10 mg PO DAILY 03/12/18 04/09/20 History ALPRAZolam [Xanax] 2 mg PO DAILY PRN 05/20/19 04/09/20 History Azelastine HCl [Optivar 0.05% 1 drop BOTH EYES BID 05/20/19 04/09/20 History Ophth Soln] Omeprazole 20 mg PO DAILY 05/20/19 04/09/20 History QUEtiapine [SEROquel] 50 mg PO HS PRN 05/20/19 04/09/20 History Ibuprofen [Motrin] 800 mg PO Q8H PRN 03/30/20 04/09/20 History Ipratropium-Albuterol Nebulize 3 ml INHALATION Q6H PRN 03/30/20 04/09/20 History [Duoneb 0.5 mg-3 mg/3 ml Soln] Nebivolol HCl [Bystolic] 10 mg PO HS 03/30/20 04/09/20 History Allergies Allergy/AdvReac Type Severity Reaction Status Date / Time amoxicillin Allergy Rash/Hives Verified 03/30/20 13:06 cefaclor [From Ceclor] Allergy Rash/Hives Verified 03/30/20 13:06 clarithromycin [From Biaxin] Allergy Rash/Hives Verified 03/30/20 13:06 meperidine HCl [From Demerol] Allergy Rash/Hives/ Verified 03/30/20 13:06 vomiting oxycodone Allergy Rash/Hives Verified 04/09/20 14:59 Penicillins Allergy Rash/Hives Verified 04/09/20 14:59 Sulfa (Sulfonamide Allergy Rash/Hives Verified 03/30/20 13:06 Antibiotics) sulfamethoxazole Allergy Rash/Hives Verified 03/30/20 13:06 [From Septra] trimethoprim [From Septra] Allergy Rash/Hives Verified 03/30/20 13:06 Powdered Gloves Allergy Rash/Hives Uncoded 03/30/20 13:47
[~2020-04-15 09:29] MED LIST changes: -ACETAMINOPHEN TAB 500 MG TAB PO STA; -CLINDAMYCIN 900 MG in DEXTROSE 5% IN WATER 50 ML IVPB ONE; -DEXAMETHASONE SOD PHOSPHATE 10 MG/ML 1 ML VIAL IV STA; -GABAPENTIN 300 MG CAP PO STA; -HEPARIN SODIUM,PORCINE 5,000 UNIT/ML 1 ML VIAL SQ ONE; -INDOCYANINE GREEN 25 MG VIAL IV STA; +LACTATED RINGERS 1,000 ML IV SCH
[2020-04-15 10:10] VITALS: TEMP 97.8
[2020-04-15 10:15] LABS: Glucose,Whole Blood 100 mg/dL (75-99)
[2020-04-15] MEDS ORDERED: PROPOFOL 10 MG/ML 20 ML VIAL IV ONE (10:45)
[2020-04-15] MEDS ORDERED: IV FLUID CONTINUATION 1,000 ML IV ONE (11:09)
--- NOTE | 2020-04-15 11:21 | P.PCN ---
Date of Procedure: 04/15/20 Description of Procedure: PREOPERATIVE DIAGNOSIS: Gastroesophageal reflux disease. Whitley's esophagus POSTOPERATIVE DIAGNOSIS: Whitley's esophagus Gastritis. Gastroesophageal reflux disease. Diaphragmatic hiatal hernia OPERATION: Esophagogastroduodenoscopy with biopsies along antrum and distal esophagus SURGEON: Aubree Allred MD ANESTHESIA: MAC. INDICATIONS: The patient is a 49-year-old female who presents with a history of reflux disease. Benefits and risks of the procedure were described. Informed consent was obtained. DESCRIPTION: The patient was brought into the endoscopy suite and laid in the left lateral decubitus position. An Olympus gastroscope was passed along the posterior ankit pharynx down to the distal esophagus where the squamocolumnar junction was encountered at 37 cm from the incisors. The stomach was entered and no bile reflux was found. Additional findings are listed below. Biopsies with cold forceps were obtained of the antrum. The first through third portion of the duodenum was examined and unremarkable. Retroflexion of the scope confirmed Hill grade 3 lower esophageal valve. The squamocolumnar junction demonstrated LA grade D erosive esophagitis. The stomach was desufflated. The patient tolerated the procedure well. FINDINGS: Squamocolumnar junction 37 cm from the incisors. Diaphragmatic hiatus at 40 cm. Hiatal hernia, 3 cm Hill grade 3 lower esophageal valve. LA grade D erosive esophagitis. No active duodenitis. Chronic gastritis RECOMMENDATIONS: 1. Repeat upper endoscopy one year, 2021
--- NOTE | 2020-04-15 11:24 | P.PCN ---
Date of Procedure: 04/15/20 Description of Procedure: PREOPERATIVE DIAGNOSIS: Colitis Rectal bleeding POSTOPERATIVE DIAGNOSIS: Colitis OPERATION: Colonoscopy to the cecum, ileocecal valve and appendiceal orifice. Colonoscopy with random biopsies colon for colitis SURGEON: Aubree Allred MD. ANESTHESIA: MAC. INDICATIONS: The patient is a 49-year-old female who presents for colonoscopy screening. Benefits and risks were described and informed consent was obtained. DESCRIPTION OF PROCEDURE: The patient had undergone Suprep. She had been brought into the operating room and laid in the left lateral decubitus position. After adequate intravenous sedation, the rectum was examined with 2% lidocaine jelly. No external hemor rhoids were encountered. The rectal tone was within normal limits. No lesions were palpated in the rectal vault. An Olympus colonoscope was advanced until the cecum, ileocecal valve and appendiceal orifice were clearly viewed. The prep was excellent. No scattered diverticulosis was encountered. No colonic polyps were found. Random biopsies with cold forceps are obtained for history of colitis and rectal bleeding. Retroflexion of the scope demonstrated grade 1 internal hemorrhoids without active bleeding or inflammation. The colon was desufflated. The patient had tolerated the procedure well. Withdrawal time was over 6 minutes. FINDINGS: Aronchick preparation quality scale 1 (1-5) Internal hemorrhoids, grade 1 No external prolapsed hemorrhoids. No arteriovenous malformations. No adenomatous polyps. No focal colitis. RECOMMENDATIONS: Lower endoscopy in 5 years, 2025 Plan - Discharge Summary Discharge Rx Participant: No New Discharge Prescriptions: Continue Albuterol Sulfate [Proair Hfa] 2 puff INHALATION RT-QID PRN PRN Reason: Shortness Of Breath Latanoprost Ophth [Xalatan 0.005%] 1 drop BOTH EYES HS Loratadine [Claritin] 10 mg PO DAILY Omeprazole 20 mg PO DAILY ALPRAZolam [Xanax] 2 mg PO DAILY PRN PRN Reason: Anxiety QUEtiapine [SEROquel] 50 mg PO HS PRN PRN Reason: Anxiety Azelastine HCl [Optivar 0.05% Ophth Soln] 1 drop BOTH EYES BID Ipratropium-Albuterol Nebulize [Duoneb 0.5 mg-3 mg/3 ml Soln] 3 ml INHALATION Q6H PRN PRN Reason: COPD Nebivolol HCl [Bystolic] 10 mg PO HS Ibuprofen [Motrin] 800 mg PO Q8H PRN PRN Reason: Pain Discharge Medication List Albuterol Sulfate [Proair Hfa] 2 puff INHALATION RT-QID PRN 03/12/18 [History] Latanoprost Ophth [Xalatan 0.005%] 1 drop BOTH EYES HS 03/12/18 [History] Loratadine [Claritin] 10 mg PO DAILY 03/12/18 [History] ALPRAZolam [Xanax] 2 mg PO DAILY PRN 05/20/19 [History] Azelastine HCl [Optivar 0.05% Ophth Soln] 1 drop BOTH EYES BID 05/20/19 [History] Omeprazole 20 mg PO DAILY 05/20/19 [History] QUEtiapine [SEROquel] 50 mg PO HS PRN 05/20/19 [History] Ibuprofen [Motrin] 800 mg PO Q8H PRN 03/30/20 [History] Ipratropium-Albuterol Nebulize [Duoneb 0.5 mg-3 mg/3 ml Soln] 3 ml INHALATION Q6H PRN 03/30/20 [History] Nebivolol HCl [Bystolic] 10 mg PO HS 03/30/20 [History] Follow up Appointment(s)/Referral(s): Aubree Allred MD [STAFF PHYSICIAN] - 04/28/20 Patient Instructions/Handouts: Colorectal Polyps (DC), Whitley Esophagus (DC) Activity/Diet/Wound Care/Special Instructions: Repeat upper endoscopy one year2021 Repeat lower endoscopy 5 years2025 Discharge Disposition: HOME SELF-CARE
[2020-04-15 11:35] VITALS: BP 118/76; PULSE 72; RESP 16
== END 2020-04-15 11:59 | disposition home or self-care (01) ==
LOC: ORWHC2ENDO 09:29
PROVIDERS: ATTEND Surgery Plastic and Reconstructive Surgery
DX: K63.5 Polyp of colon (principal); K52.9 Noninfective gastroenteritis and colitis, unspecified; K64.0 First degree hemorrhoids; K29.51 Unspecified chronic gastritis with bleeding; K22.70 Barrett's esophagus without dysplasia; K21.01 Gastro-esophageal reflux disease with esophagitis, with bleeding; K44.9 Diaphragmatic hernia without obstruction or gangrene; J44.9 Chronic obstructive pulmonary disease, unspecified; I10 Essential (primary) hypertension; M19.90 Unspecified osteoarthritis, unspecified site; G89.29 Other chronic pain; M41.9 Scoliosis, unspecified; M51.9 Unspecified thoracic, thoracolumbar and lumbosacral intervertebral disc disorder; N83.209 Unspecified ovarian cyst, unspecified side; F40.240 Claustrophobia; F17.200 Nicotine dependence, unspecified, uncomplicated; F41.9 Anxiety disorder, unspecified; Z88.1 Allergy status to other antibiotic agents; Z88.5 Allergy status to narcotic agent; Z87.09 Personal history of other diseases of the respiratory system; Z86.19 Personal history of other infectious and parasitic diseases; Z87.19 Personal history of other diseases of the digestive system; Z98.890 Other specified postprocedural states; Z90.49 Acquired absence of other specified parts of digestive tract; Z90.710 Acquired absence of both cervix and uterus; Z98.51 Tubal ligation status; Z91.89 Other specified personal risk factors, not elsewhere classified; Z86.74 Personal history of sudden cardiac arrest; Z86.69 Personal history of other diseases of the nervous system and sense organs; Z79.899 Other long term (current) drug therapy; Z79.1 Long term (current) use of non-steroidal anti-inflammatories (NSAID); Z88.0 Allergy status to penicillin; Z88.2 Allergy status to sulfonamides; Z91.048 Other nonmedicinal substance allergy status; Z84.89 Family history of other specified conditions
CPT/HCPCS: 45380; 43239; 88305; J2704